=== PATIENT | male | born 1935 | race Two or more races ===

== ENCOUNTER 2021-01-09 02:19 | Inpatient (IN) | payer MEDICARE ==
[2021-01-09] MEDS ORDERED: SODIUM CHLORIDE 0.9% 1,000 ML IV STA (02:59)
--- NOTE | 2021-01-09 03:00 | ED ---
GI Bleed HPI - General Chief complaint: GI Bleed Stated complaint: Poss GI bleed Time Seen by Provider: 01/09/21 02:49 Source: patient, EMS, RN notes reviewed, old records reviewed Mode of arrival: EMS Limitations: altered mental status - History of Present Illness Initial comments: This is an 85-year-old male DF for evaluation patient Dese for evaluation of weakness, patient is a poor historian history obtained by family members at bedside. Patient has had blood in the stool which is been an ongoing issue with recent hospital admission for same. Patient occasionally complains of some abdominal pain but nothing significant. No nausea or vomiting. No blood thinners patient does feel little weak MD complaint: blood on toilet paper, blood streaked stool -: days(s) Radiation: none Severity scale (1-10): 3 Quality: cramping Consistency: intermittent Improves with: none Worsens with: bowel movement Context: history of GI bleed Associated Symptoms: nausea Treatments Prior to Arrival: none - Related Data Home Medications Medication Instructions Recorded Confirmed Multivitamins, Thera [Multivitamin 1 tab PO DAILY@0800 09/12/14 01/09/21 (formulary)] Acetaminophen Tab [Tylenol] 650 mg PO Q6H PRN 01/09/21 01/09/21 Albuterol Sulfate [Albuterol 2 puff INHALATION RT-Q6H PRN 01/09/21 01/09/21 Sulfate Hfa] Ascorbic Acid [Vitamin C] 1,000 mg PO DAILY@169901/09/21 01/09/21 Aspirin 81 mg PO DAILY@169901/09/21 01/09/21 Atorvastatin [Lipitor] 80 mg PO HS@209901/09/21 01/09/21 Cholecalciferol (Vitamin D3) 125 mcg PO DAILY@169901/09/21 01/09/21 [Vitamin D3 (5000 Iu)] Dexamethasone [Decadron] 6 mg PO DAILY@79901/09/21 01/09/21 Donepezil [Aricept] 10 mg PO HS@209901/09/21 01/09/21 Furosemide [Lasix] 40 mg PO DAILY@79901/09/21 01/09/21 Lactose-Reduced Food [Ensure Plus] 1 can PO TID@0800,1200,169901/09/21 01/09/21 Magnesium Hydroxide [Milk of 2,400 ml PO Q48H PRN 01/09/21 01/09/21 Magnesia] Magnesium Oxide [Mag-Ox] 400 mg PO DAILY@1700 01/09/21 01/09/21 Melatonin 10 mg PO HS@209901/09/21 01/09/21 Menthol-Zinc Oxide Oint 1 applic TOPICAL DAILY PRN 01/09/21 01/09/21 [Calmoseptine Oint] Metoprolol Tartrate [Lopressor] 25 mg PO HS@209901/09/21 01/09/21 Na Phos,M-B/Na Phos,Di-Ba [Fleet 133 ml RECTAL DAILY PRN 01/09/21 01/09/21 Adult] Pantoprazole Sodium [Protonix] 40 mg PO BID@0800,209901/09/21 01/09/21 QUEtiapine [SEROquel] 25 mg PO BID@0800,209901/09/21 01/09/21 Tamsulosin [Flomax] 0.4 mg PO DAILY@0800 01/09/21 01/09/21 bisacodyL [Dulcolax] 10 mg RECTAL DAILY PRN 01/09/21 01/09/21 Allergies Allergy/AdvReac Type Severity Reaction Status Date / Time codeine Allergy heartburn Verified 01/09/21 08:04 Review of Systems ROS Statement: Those systems with pertinent positive or pertinent negative responses have been documented in the HPI. ROS Other: All systems not noted in ROS Statement are negative. Past Medical History Past Medical History: Coronary Artery Disease (CAD), GERD/Reflux, Hyperlipidemia, Hypertension, Myocardial Infarction ([place]), Musculoskeletal Disorder, Prostate Disorder, Renal Disease, Supraventricular Tachycardia (SVT) Additional Past Medical History / Comment(s): Degenerative disc disease Last Myocardial Infarction Date:: 09/18/2014 History of Any Multi-Drug Resistant Organisms: None Reported Past Surgical History: Adenoidectomy, Cholecystectomy, Orthopedic Surgery, Tonsillectomy Additional Past Surgical History / Comment(s): Left nephrectomy, cataracts bilaterally, right total knee arthroplasty, colonoscopy - last one 4 years ago and was normal and previous to that he was found to have polyps. Past Anesthesia/Blood Transfusion Reactions: No Reported Reaction Date of Last Stent Placement:: 09/18/2014 Past Psychological History: No Psychological Hx Reported Smoking Status: Never smoker Past Alcohol Use History: Occasional Past Drug Use History: None Reported - Past Family History Father Family Medical History: Myocardial Infarction ([place]) Additional Family Medical History / Comment(s): at age 56 from myocardial infarction. Mother Family Medical History: Coronary Artery Disease (CAD), Dementia (Alzheimer) Additional Family Medical History / Comment(s): Mother at age 74. Brother(s) Family Medical History: Myocardial Infarction ([place]) Additional Family Medical History / Comment(s): One brother alive underwent [place] and CABG Daughter(s) Additional Family Medical History / Comment(s): He has 4 daughters with no major medical problems. He has 2 great stepsons and 2 stepdaughters. General Exam Limitations: altered mental status General appearance: alert, in no apparent distress Head exam: Present: atraumatic, normocephalic, normal inspection Eye exam: Present: normal appearance, PERRL, EOMI. Absent: scleral icterus, conjunctival injection, periorbital swelling ENT exam: Present: normal exam, mucous membranes moist Neck exam: Present: normal inspection. Absent: tenderness, meningismus, lymphadenopathy Respiratory exam: Present: normal lung sounds bilaterally. Absent: respiratory distress, wheezes, rales, rhonchi, stridor Cardiovascular Exam: Present: regular rate, normal rhythm, normal heart sounds. Absent: systolic murmur, diastolic murmur, rubs, gallop, clicks GI/Abdominal exam: Present: soft, normal bowel sounds. Absent: distended, tenderness, guarding, rebound, rigid Extremities exam: Present: normal inspection, full ROM, normal capillary refill. Absent: tenderness, pedal edema, joint swelling, calf tenderness Back exam: Present: normal inspection Neurological exam: Present: alert, oriented X3, CN II-XII intact Psychiatric exam: Present: normal affect, normal mood Skin exam: Present: warm, dry, intact, normal color. Absent: rash Course Vital Signs 01/09/21 01/09/21 01/09/21 02:29 03:41 06:17 Temperature 97.4 F L Pulse Rate 58 L 68 62 Respiratory 18 18 18 Rate Blood Pressure 128/72 110/71 105/62 O2 Sat by Pulse 98 98 95 Oximetry 01/09/21 01/09/21 01/09/21 10:32 12:38 17:59 Temperature Pulse Rate 62 70 71 Respiratory 18 18 18 Rate Blood Pressure 125/63 111/62 103/67 O2 Sat by Pulse 98 97 99 Oximetry 01/09/21 22:53 Temperature Pulse Rate 73 Respiratory 18 Rate Blood Pressure 129/71 O2 Sat by Pulse 95 Oximetry - Reevaluation(s) Reevaluation #1: Medical record is reviewed Patient is feeling improved here in the emergency room Spoke with patient regarding findings questions are answered Patient has no bloody bowel movements here in the ER Will be admitted for further evaluation by GI Medical Decision Making - Medical Decision Making 85 male for weakness. GI bleed. Patient will be admitted for continued evaluation, poor story history obtained and relayed with daughter at bedside, patient is weak mild renal failure although it appears to be improving and elevated troponin - Lab Data Result diagrams: 01/09/21 03:03 01/09/21 03:03 Lab Results 01/09/21 01/09/21 01/09/21 Range/Units 03:03 03:03 03:03 WBC 13.5 H (3.8-10.6) k/uL RBC 3.32 L (4.30-5.90) m/uL Hgb 9.9 L (13.0-17.5) gm/dL Hct 30.2 L (39.0-53.0) % MCV 91.0 (80.0-100.0) fL MCH 29.7 (25.0-35.0) pg MCHC 32.6 (31.0-37.0) g/dL RDW 14.7 (11.5-15.5) % Plt Count 290 (150-450) k/uL MPV 8.8 Neutrophils % 89 % Lymphocytes % 7 % Monocytes % 4 % Eosinophils % 0 % Basophils % 0 % Neutrophils # 12.0 H (1.3-7.7) k/uL Lymphocytes # 0.9 L (1.0-4.8) k/uL Monocytes # 0.5 (0-1.0) k/uL Eosinophils # 0.0 (0-0.7) k/uL Basophils # 0.0 (0-0.2) k/uL PT 10.0 (9.0-12.0) sec INR 0.9 (<1.2) APTT 18.3 L (22.0-30.0) sec Sodium 137 (137-145) mmol/L Potassium 4.7 (3.5-5.1) mmol/L Chloride 100 (98-107) mmol/L Carbon Dioxide 29 (22-30) mmol/L Anion Gap 8 mmol/L BUN 100 H (9-20) mg/dL Creatinine 3.49 H (0.66-1.25) mg/dL Est GFR (CKD-EPI)AfAm 18 (>60 ml/min/1.73 sqM) Est GFR (CKD-EPI)NonAf 15 (>60 ml/min/1.73 sqM) Glucose 130 H (74-99) mg/dL Plasma Lactic Acid Sudheer (0.7-2.0) mmol/L Calcium 8.9 (8.4-10.2) mg/dL Magnesium 2.3 (1.6-2.3) mg/dL Total Bilirubin 0.5 (0.2-1.3) mg/dL AST 65 H (17-59) U/L ALT 50 H (4-49) U/L Alkaline Phosphatase 94 (38-126) U/L Creatine Kinase 78 (55-170) U/L Troponin I (0.000-0.034) ng/mL Total Protein 5.9 L (6.3-8.2) g/dL Albumin 3.2 L (3.5-5.0) g/dL Coronavirus (PCR) (Not Detectd) Blood Type Blood Type Confirm Blood Type Recheck Bld Type Recheck Status Antibody Screen Spec Expiration Date 01/09/21 01/09/21 01/09/21 Range/Units 03:03 03:03 03:03 WBC (3.8-10.6) k/uL RBC (4.30-5.90) m/uL Hgb (13.0-17.5) gm/dL Hct (39.0-53.0) % MCV (80.0-100.0) fL MCH (25.0-35.0) pg MCHC (31.0-37.0) g/dL RDW (11.5-15.5) % Plt Count (150-450) k/uL MPV Neutrophils % % Lymphocytes % % Monocytes % % Eosinophils % % Basophils % % Neutrophils # (1.3-7.7) k/uL Lymphocytes # (1.0-4.8) k/uL Monocytes # (0-1.0) k/uL Eosinophils # (0-0.7) k/uL Basophils # (0-0.2) k/uL PT (9.0-12.0) sec INR (<1.2) APTT (22.0-30.0) sec Sodium (137-145) mmol/L Potassium (3.5-5.1) mmol/L Chloride (98-107) mmol/L Carbon Dioxide (22-30) mmol/L Anion Gap mmol/L BUN (9-20) mg/dL Creatinine (0.66-1.25) mg/dL Est GFR (CKD-EPI)AfAm (>60 ml/min/1.73 sqM) Est GFR (CKD-EPI)NonAf (>60 ml/min/1.73 sqM) Glucose (74-99) mg/dL Plasma Lactic Acid Sudheer 1.6 (0.7-2.0) mmol/L Calcium (8.4-10.2) mg/dL Magnesium (1.6-2.3) mg/dL Total Bilirubin (0.2-1.3) mg/dL AST (17-59) U/L ALT (4-49) U/L Alkaline Phosphatase (38-126) U/L Creatine Kinase (55-170) U/L Troponin I 0.105 H* (0.000-0.034) ng/mL Total Protein (6.3-8.2) g/dL Albumin (3.5-5.0) g/dL Coronavirus (PCR) (Not Detectd) Blood Type O Positive Blood Type Confirm Blood Type Recheck No Previous Record Bld Type Recheck Status CABO Indicated Antibody Screen NEGATIVE Spec Expiration Date 01/12/2021230201/09/21 01/09/21 01/09/21 Range/Units 03:04 04:00 11:26 WBC (3.8-10.6) k/uL RBC (4.30-5.90) m/uL Hgb (13.0-17.5) gm/dL Hct (39.0-53.0) % MCV (80.0-100.0) fL MCH (25.0-35.0) pg MCHC (31.0-37.0) g/dL RDW (11.5-15.5) % Plt Count (150-450) k/uL MPV Neutrophils % % Lymphocytes % % Monocytes % % Eosinophils % % Basophils % % Neutrophils # (1.3-7.7) k/uL Lymphocytes # (1.0-4.8) k/uL Monocytes # (0-1.0) k/uL Eosinophils # (0-0.7) k/uL Basophils # (0-0.2) k/uL PT (9.0-12.0) sec INR (<1.2) APTT (22.0-30.0) sec Sodium (137-145) mmol/L Potassium (3.5-5.1) mmol/L Chloride (98-107) mmol/L Carbon Dioxide (22-30) mmol/L Anion Gap mmol/L BUN (9-20) mg/dL Creatinine (0.66-1.25) mg/dL Est GFR (CKD-EPI)AfAm (>60 ml/min/1.73 sqM) Est GFR (CKD-EPI)NonAf (>60 ml/min/1.73 sqM) Glucose (74-99) mg/dL Plasma Lactic Acid Sudheer (0.7-2.0) mmol/L Calcium (8.4-10.2) mg/dL Magnesium (1.6-2.3) mg/dL Total Bilirubin (0.2-1.3) mg/dL AST (17-59) U/L ALT (4-49) U/L Alkaline Phosphatase (38-126) U/L Creatine Kinase (55-170) U/L Troponin I 0.104 H* (0.000-0.034) ng/mL Total Protein (6.3-8.2) g/dL Albumin (3.5-5.0) g/dL Coronavirus (PCR) Detected A (Not Detectd) Blood Type Blood Type Confirm O Positive Blood Type Recheck Bld Type Recheck Status Antibody Screen Spec Expiration Date Critical Care Time Critical Care Time: Yes Total Critical Care Time: 31 Disposition Clinical Impression: Elevated troponin, Weakness, Lower gastrointestinal hemorrhage, ARF (acute renal failure) Disposition: ADMITTED IP TO THIS [facility] Condition: Serious Is patient prescribed a controlled substance at d/c from ED?: No
[2021-01-09 03:15] LABS: Basophils % (A) 0 %; Eosinophils % (A) 0 %; HCT 30.2 % (39.0-53.0); HGB 9.9 gm/dL (13.0-17.5); Lymphocytes # (A) 0.9 k/uL (1.0-4.8); Lymphocytes % (A) 7 %; MCH 29.7 pg (25.0-35.0); MCHC 32.6 g/dL (31.0-37.0); Mean Platelet Volume 8.8; Monocytes # (A) 0.5 k/uL (0-1.0); Monocytes % (A) 4 %; Neutrophils % (A) 89 %; Platelet Count 290 k/uL (150-450); RBC 3.32 m/uL (4.30-5.90); RDW 14.7 % (11.5-15.5); WBC 13.5 k/uL (3.8-10.6)
[2021-01-09 03:28] LABS: Albumin 3.2 g/dL (3.5-5.0); Calcium 8.9 mg/dL (8.4-10.2); Magnesium 2.3 mg/dL (1.6-2.3); Potassium 4.7 mmol/L (3.5-5.1); Total Bilirubin 0.5 mg/dL (0.2-1.3); Total Protein 5.9 g/dL (6.3-8.2)
[2021-01-09 03:59] LABS: INR 0.9 (<1.2)
[2021-01-09 04:06] LABS: Partial Thromboplastin Time 18.3 sec (22.0-30.0)
[2021-01-09] MEDS ORDERED: NALOXONE 0.4 MG/ML 1 ML VIAL IV PRN (05:10)
[2021-01-09] MEDS ORDERED: ALBUTEROL HFA INHALER INHALATION PRN (10:58)
[2021-01-09] MEDS ORDERED: ACETAMINOPHEN TAB 325 MG TAB PO PRN (10:58)
[2021-01-09] MEDS ORDERED: NON FORMULARY DRUG (Lactose-Reduced Food [Ensure Plus] 237 ML Liquid) PO SCH (12:00)
--- NOTE | 2021-01-09 12:55 | P.HPIM ---
History of Present Illness H&P Date: 01/09/21 Chief Complaint: GI bleed HISTORY OF PRESENT ILLNESS This is an 85-year-old male patient of Dr. 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 Patient was recently seen at [facility] by GI and underwent EGD. Patient was subsequently discharged to [facility] for subacute rehab and he has had dark tarry stools but now having bright red clots. Patient was transferred to [facility] for evaluation and found to be afebrile, heart rate 58, blood pressure 128/72, pulse ox 98% on room air. WBC 15.5, hemoglobin 9.9, platelet count 290. INR 0.9. Electrolytes normal, BUN 100 and creatinine 3.49. Glucose 130. Magnesium 2.3, total bilirubin 1.6, AST 65, ALT 50, alkaline phosphatase 94. Troponin 0.105, 0.104. CK 78. Patient denies having any chest pain at this time. Patient has been seen by GI with plan for EGD and colonoscopy. Cardiology consult added and repeat troponins ordered as well as echocardiogram and EKG. REVIEW OF SYSTEMS Constitutional: No fever, no chills, no night sweats. No weight change. No weakness, fatigue or lethargy. No daytime sleepiness. EENT: No headache. No blurred vision or double vision, no loss of vision. Chronic loss of Hearing, no ringing in the ears, no dizziness. No nasal drainage or congestion. No epistaxis. No sore throat. Lungs: No shortness of breath, cough, no sputum production. No wheezing. Cardiovascular: No chest pain, no lower extremity edema. No palpitations. No p aroxysmal nocturnal dyspnea. No orthopnea. No lightheadedness or dizziness. No syncopal episodes. Abdominal: No abdominal pain. No nausea, vomiting. No diarrhea. No constipation. Reports bloody or tarry stools.. No loss of appetite. Genitourinary: No dysuria, increased frequency, urgency. No urinary retention. Musculoskeletal: No myalgias. No muscle weakness, no gait dysfunction, no freq uent falls. No back pain. No neck pain. Integumentary: No wounds, no lesions. No rash or pruritus. No unusual bruising. No change in hair or nails. Neurologic: No aphasia. No facial droop. No change in mentation. No head injury. No headache. No paralysis. No paresthesia. Psychiatric: No depression. No anxiety. No mood swings. Endocrine: No abnormal blood sugars. SOCIAL HISTORY Patient denies any history of cigarette smoking, marijuana use or street drug use. No history of alcohol use or abuse. Patient does have history of smoking cigars. FAMILY HISTORY Mother at age 74 with history of coronary artery disease and Alzheimer's dementia. Father at age 56 from a myocardial infarction. Patient has one brother with history of IL and CABG. Patient has 4 daughters with no major medical problems. PHYSICAL EXAMINATION Gen: This is an 85-year-old male patient, resting in the ER and appears to be c omfortable. HEENT: Head is atraumatic, normocephalic. Pupils equal, round. Sclerae is anicteric. Patient is very hard of hearing. NECK: Supple. No JVD. No lymphadenopathy. No thyromegaly. LUNGS: Clear to auscultation. No wheezes or rhonchi. No intercostal retractions. HEART: Regular rate and rhythm. 2/6 systolic ejection murmur murmur. ABDOMEN: Soft. Bowel sounds are present. No masses. No tenderness. EXTREMITIES: No pedal edema. No calf tenderness. NEUROLOGICAL: Patient is awake, alert and oriented x3. Cranial nerves 2 through 12 are grossly intact. ASSESSMENT AND PLAN 1. Acute GI bleed. Patient has been seen by GI and plan is for EGD and colonoscopy tomorrow. Continue Protonix 40 mg twice daily, IV fluids 0.9 normal saline at 100 mL per hour.. 2. Acute kidney injury most likely secondary to acute GI bleed. Consult with Dr. Lemus. Hold Lasix, discontinue Decadron. 3. Elevated troponins. Repeat troponins, EKG, echocardiogram and cardiology co nsult ordered. 4. History of coronary artery disease with previous stenting. Hold aspirin. Continue Lipitor and Lopressor 25 mg at bedtime 5. Hypertension. Continue Lopressor. 6. Hyperlipidemia. Continue Lipitor. 7. Chronic kidney disease stage III. 8. Benign prostatic hypertrophy. Continue Flomax 0.4 mg daily. 9. Dementia. Continue Aricept 10 mg at bedtime. 10. Recurrent depression. Continue Seroquel 25 mg twice daily. 11. Recent Covid 19 pneumonia diagnosed on December 27. 12. COVID-19 testing positive. Patient will be admitted to the hospital for a minimum of 2 night stay. DISCHARGE PLAN Return to [facility] Impression and plan of care have been directed as dictated by the signing physician. Dionne Kaur nurse practitioner acting as scribe for signing physician. Past Medical History Past Medical History: Coronary Artery Disease (CAD), GERD/Reflux, Hyperlipidemia, Hypertension, Myocardial Infarction ([place]), Musculoskeletal Disorder, Prostate Disorder, Renal Disease, Supraventricular Tachycardia (SVT) Additional Past Medical History / Comment(s): Degenerative disc disease Last Myocardial Infarction Date:: 09/18/2014 History of Any Multi-Drug Resistant Organisms: None Reported Past Surgical History: Adenoidectomy, Cholecystectomy, Orthopedic Surgery, Tonsillectomy Additional Past Surgical History / Comment(s): Left nephrectomy, cataracts bilaterally, right total knee arthroplasty, colonoscopy - last one 4 years ago and was normal and previous to that he was found to have polyps. Past Anesthesia/Blood Transfusion Reactions: No Reported Reaction Date of Last Stent Placement:: 09/18/2014 Past Psychological History: No Psychological Hx Reported Smoking Status: Never smoker Past Alcohol Use History: Occasional Past Drug Use History: None Reported - Past Family History Father Family Medical History: Myocardial Infarction ([place]) Additional Family Medical History / Comment(s): at age 56 from myocardial infarction. Mother Family Medical History: Coronary Artery Disease (CAD), Dementia (Alzheimer) Additional Family Medical History / Comment(s): Mother at age 74. Brother(s) Family Medical History: Myocardial Infarction ([place]) Additional Family Medical History / Comment(s): One brother alive underwent [place] and CABG Daughter(s) Additional Family Medical History / Comment(s): He has 4 daughters with no major medical problems. He has 2 great stepsons and 2 stepdaughters. Medications and Allergies Home Medications Medication Instructions Recorded Confirmed Type Multivitamins, Thera [Multivitamin 1 tab PO DAILY@0800 0201/09/21 History (formulary)] Acetaminophen Tab [Tylenol] 650 mg PO Q6H PRN 01/09/21 01/09/21 History Albuterol Sulfate [Albuterol 2 puff INHALATION RT-Q6H PRN 01/09/21 01/09/21 History Sulfate Hfa] Ascorbic Acid [Vitamin C] 1,000 mg PO DAILY@169901/09/21 01/09/21 History Aspirin 81 mg PO DAILY@169901/09/21 01/09/21 History Atorvastatin [Lipitor] 80 mg PO HS@209901/09/21 01/09/21 History Cholecalciferol (Vitamin D3) 125 mcg PO DAILY@169901/09/21 01/09/21 History [Vitamin D3 (5000 Iu)] Dexamethasone [Decadron] 6 mg PO DAILY@79901/09/21 01/09/21 History Donepezil [Aricept] 10 mg PO HS@209901/09/21 01/09/21 History Furosemide [Lasix] 40 mg PO DAILY@79901/09/21 01/09/21 History Lactose-Reduced Food [Ensure Plus] 1 can PO TID@0800,1200,169901/09/21 01/09/21 History Magnesium Hydroxide [Milk of 2,400 ml PO Q48H PRN 01/09/21 01/09/21 History Magnesia] Magnesium Oxide [Mag-Ox] 400 mg PO DAILY@169901/09/21 01/09/21 History Melatonin 10 mg PO HS@209901/09/21 01/09/21 History Menthol-Zinc Oxide Oint 1 applic TOPICAL DAILY PRN 01/09/21 01/09/21 History [Calmoseptine Oint] Metoprolol Tartrate [Lopressor] 25 mg PO HS@209901/09/21 01/09/21 History Na Phos,M-B/Na Phos,Di-Ba [Fleet 133 ml RECTAL DAILY PRN 01/09/21 01/09/21 H istory Adult] Pantoprazole Sodium [Protonix] 40 mg PO BID@0800,209901/09/21 01/09/21 History QUEtiapine [SEROquel] 25 mg PO BID@0800,2100 01/09/21 01/09/21 History Tamsulosin [Flomax] 0.4 mg PO DAILY@0800 01/09/21 01/09/21 History bisacodyL [Dulcolax] 10 mg RECTAL DAILY PRN 01/09/21 01/09/21 History Allergies Allergy/AdvReac Type Severity Reaction Status Date / Time codeine Allergy heartburn Verified 01/09/21 08:04 Physical Exam Vitals: Vital Signs Temp Pulse Resp BP Pulse Ox 01/09/21 10:32 62 18 125/63 98 01/09/21 06:17 62 18 105/62 95 01/09/21 03:41 68 18 110/71 98 01/09/21 02:29 97.4 F L 58 L 18 128/72 98 Intake and Output 01/08/21 01/09/21 01/09/21 22:59 06:59 14:59 Other: Weight 90.718 kg Results CBC & Chem 7: 01/09/21 03:03 01/09/21 03:03 Labs: Abnormal Lab Results - Last 24 Hours (Table) 01/09/21 01/09/21 01/09/21 Range/Units 03:03 03:03 03:03 WBC 13.5 H (3.8-10.6) k/uL RBC 3.32 L (4.30-5.90) m/uL Hgb 9.9 L (13.0-17.5) gm/dL Hct 30.2 L (39.0-53.0) % Neutrophils # 12.0 H (1.3-7.7) k/uL Lymphocytes # 0.9 L (1.0-4.8) k/uL APTT 18.3 L (22.0-30.0) sec BUN 100 H (9-20) mg/dL Creatinine 3.49 H (0.66-1.25) mg/dL Glucose 130 H (74-99) mg/dL AST 65 H (17-59) U/L ALT 50 H (4-49) U/L Troponin I (0.000-0.034) ng/mL Total Protein 5.9 L (6.3-8.2) g/dL Albumin 3.2 L (3.5-5.0) g/dL Coronavirus (PCR) (Not Detectd) 01/09/21 01/09/21 Range/Units 03:03 04:00 WBC (3.8-10.6) k/uL RBC (4.30-5.90) m/uL Hgb (13.0-17.5) gm/dL Hct (39.0-53.0) % Neutrophils # (1.3-7.7) k/uL Lymphocytes # (1.0-4.8) k/uL APTT (22.0-30.0) sec BUN (9-20) mg/dL Creatinine (0.66-1.25) mg/dL Glucose (74-99) mg/dL AST (17-59) U/L ALT (4-49) U/L Troponin I 0.105 H* (0.000-0.034) ng/mL Total Protein (6.3-8.2) g/dL Albumin (3.5-5.0) g/dL Coronavirus (PCR) Detected A (Not Detectd)
--- NOTE | 2021-01-09 13:31 | P.CRDCN ---
History of Present Illness Consult date: 01/09/21 History of present illness: HISTORY OF PRESENT ILLNESS: This is a 85 year old male with a past medical history significant for coronary artery disease, hypertension, hyperlipidemia, SVT, GERD, and dementia. Patient follows with Dr. Vela. We have been asked to see the patient in consultation for elevated troponins. Patient examined at the bedside in the emergency room. Patients family member is at the bedside and providing majority of history. She reports patient was taken to [facility] on 12/26/2020 due to weakness. He was diagnosed with Covid 19 and also found to have acute renal failure. Patient developed pneumonia. Patient also developed GI bleeding and underwent EGD per family member. He was discharged to [facility] for rehab. Patient presented back to the hospital today due to GI bleeding. He denies chest pain or pressure. Denies shortness of breath. Denies dizziness or lightheadedness. Family member states patient has been stable from a cardiac standpoint since his stenting in 2016 and has not required any additional cardiac workup or procedures. EKG reveals sinus mechanism with left axis deviation and right bundle branch block. Laboratory data: WBC 13.5. Hemoglobin 9.9. Platelet count 290. Sodium 137. Potassium 4.7. BUN 100. Creatinine 3.49. Potassium 1.6. Troponin 0.105. 0.104. Current home cardiac medications include metoprolol tartrate 25 mg at night, Lasix 40 mg daily, Lipitor 80 mg daily, and aspirin 81 mg daily Most recent echocardiogram obtained in 2016 reveals ejection fraction 30-35%, [id number] mitral regurgitation, mild tricuspid regurgitation, and mild aortic stenosis Cardiac catheterization history: 2016 with stenting of the late thrombosis of the proximal left anterior descending artery with reduction stenosis from 100% to 0%. REVIEW OF SYSTEMS: At the time of my exam: CONSTITUTIONAL: Denies fever or chills. HEENT: Denies blurred vision, vision changes, or eye pain. Denies hemoptysis CARDIOVASCULAR: Denies chest pain. Denies orthopnea. Denies PND. Denies palpitations RESPIRATORY: Denies shortness of breath. GASTROINTESTINAL: Denies abdominal pain. Denies nausea or vomiting. HEMATOLOGIC: Denies bleeding disorders. GENITOURINARY: Denies any blood in urine. SKIN: Denies pruitis. Denies rash. PHYSICAL EXAM: VITAL SIGNS: Reviewed. GENERAL: Well-developed in no acute distress. HEENT: Head is normocephalic. Pupils are equal, round. Sclerae anicteric. Mucous membranes of the mouth are moist. Neck supple. No JVD or thyromegaly LUNGS: Respirations even and unlabored. Lungs diminished bilaterally. HEART: Regular rate and rhythm. S1 and S2 heard. Systolic murmur noted. ABDOMEN: Soft. Nondistended. Nontender. EXTREMITIES: Normal range of motion. No clubbing or cyanosis. Peripheral pulses intact. No lower extremity edema NEUROLOGIC: Awake and alert. ASSESSMENT: Acute Covid 19, diagnosed 12/26/2020 at [facility] Coronary artery disease with previous PCI, most recently in 2016 Acute renal failure Acute GI bleeding Abnormal troponins, may be secondary to DALY and acute blood loss anemia, not suggestive of ACS Ischemic cardiomyopathy Hypertension Hyperlipidemia Dementia PLAN: An acute coronary event has been ruled out GI consulted for evaluation. Aspirin held. Resume when okay with GI service Continue metoprolol and lipitor Obtain 2D echo to assess cardiac structure and function Further recommendations pending patient course Nurse practitioner note has been reviewed by physician. Signing provider agrees with the documented findings, assessment, and plan of care. Past Medical History Past Medical History: Coronary Artery Disease (CAD), GERD/Reflux, Hyp erlipidemia, Hypertension, Myocardial Infarction (VA), Musculoskeletal Disorder, Prostate Disorder, Renal Disease, Supraventricular Tachycardia (SVT) Additional Past Medical History / Comment(s): Degenerative disc disease Last Myocardial Infarction Date:: 09/18/2014 History of Any Multi-Drug Resistant Organisms: None Reported Past Surgical History: Adenoidectomy, Cholecystectomy, Orthopedic Surgery, Tonsillectomy Additional Past Surgical History / Comment(s): Left nephrectomy, cataracts bilaterally, right total knee arthroplasty, colonoscopy - last one 4 years ago and was normal and previous to that he was found to have polyps. Past Anesthesia/Blood Transfusion Reactions: No Reported Reaction Date of Last Stent Placement:: 09/18/2014 Past Psychological History: No Psychological Hx Reported Smoking Status: Never smoker Past Alcohol Use History: Occasional Past Drug Use History: None Reported - Past Family History Father Family Medical History: Myocardial Infarction (VA) Additional Family Medical History / Comment(s): at age 56 from myocardial infarction. Mother Family Medical History: Coronary Artery Disease (CAD), Dementia (Alzheimer) Additional Family Medical History / Comment(s): Mother at age 74. Brother(s) Family Medical History: Myocardial Infarction (VA) Additional Family Medical History / Comment(s): One brother alive underwent VA and CABG Daughter(s) Additional Family Medical History / Comment(s): He has 4 daughters with no major medical problems. He has 2 great stepsons and 2 stepdaughters. Medications and Allergies Home Medications Medication Instructions Recorded Confirmed Type Multivitamins, Thera [Multivitamin 1 tab PO DAILY@0800 09/12/14 01/09/21 History (formulary)] Acetaminophen Tab [Tylenol] 650 mg PO Q6H PRN 01/09/21 01/09/21 History Albuterol Sulfate [Albuterol 2 puff INHALATION RT-Q6H PRN 01/09/21 01/09/21 History Sulfate Hfa] Ascorbic Acid [Vitamin C] 1,000 mg PO DAILY@169901/09/21 01/09/21 History Aspirin 81 mg PO DAILY@169901/09/21 01/09/21 History Atorvastatin [Lipitor] 80 mg PO HS@209901/09/21 01/09/21 History Cholecalciferol (Vitamin D3) 125 mcg PO DAILY@169901/09/21 01/09/21 History [Vitamin D3 (5000 Iu)] Dexamethasone [Decadron] 6 mg PO DAILY@79901/09/21 01/09/21 History Donepezil [Aricept] 10 mg PO HS@209901/09/21 01/09/21 History Furosemide [Lasix] 40 mg PO DAILY@79901/09/21 01/09/21 History Lactose-Reduced Food [Ensure Plus] 1 can PO TID@0800,1200,169901/09/21 01/09/21 History Magnesium Hydroxide [Milk of 2,400 ml PO Q48H PRN 01/09/21 01/09/21 History Magnesia] Magnesium Oxide [Mag-Ox] 400 mg PO DAILY@169901/09/21 01/09/21 History Melatonin 10 mg PO HS@209901/09/21 01/09/21 History Menthol-Zinc Oxide Oint 1 applic TOPICAL DAILY PRN 01/09/21 01/09/21 History [Calmoseptine Oint] Metoprolol Tartrate [Lopressor] 25 mg PO HS@209901/09/21 01/09/21 History Na Phos,M-B/Na Phos,Di-Ba [Fleet 133 ml RECTAL DAILY PRN 01/09/21 01/09/21 History Adult] Pantoprazole Sodium [Protonix] 40 mg PO BID@0800,209901/09/21 01/09/21 History QUEtiapine [SEROquel] 25 mg PO BID@0800,209901/09/21 01/09/21 History Tamsulosin [Flomax] 0.4 mg PO DAILY@0800 01/09/21 01/09/21 History bisacodyL [Dulcolax] 10 mg RECTAL DAILY PRN 01/09/21 01/09/21 History Allergies Allergy/AdvReac Type Severity Reaction Status Date / Time codeine Allergy heartburn Verified 01/09/21 08:04 Physical Exam Vitals: Vital Signs Temp Pulse Resp BP Pulse Ox 01/09/21 10:32 62 18 125/63 98 01/09/21 06:17 62 18 105/62 95 01/09/21 03:41 68 18 110/71 98 01/09/21 02:29 97.4 F L 58 L 18 128/72 98 Intake and Output 01/08/21 01/09/21 01/09/21 22:59 06:59 14:59 Other: Weight 90.718 kg Results 01/09/21 03:03 01/09/21 03:03 Cardiac Enzymes 01/09/21 01/09/21 01/09/21 Range/Units 03:03 03:03 11:26 AST 65 H (17-59) U/L Troponin I 0.105 H* 0.104 H* (0.000-0.034) ng/mL Coagulation 01/09/21 Range/Units 03:03 PT 10.0 (9.0-12.0) sec APTT 18.3 L (22.0-30.0) sec CBC 01/09/21 Range/Units 03:03 WBC 13.5 H (3.8-10.6) k/uL RBC 3.32 L (4.30-5.90) m/uL Hgb 9.9 L (13.0-17.5) gm/dL Hct 30.2 L (39.0-53.0) % Plt Count 290 (150-450) k/uL Comprehensive Metabolic Panel 01/09/21 Range/Units 03:03 Sodium 137 (137-145) mmol/L Potassium 4.7 (3.5-5.1) mmol/L Chloride 100 (98-107) mmol/L Carbon Dioxide 29 (22-30) mmol/L BUN 100 H (9-20) mg/dL Creatinine 3.49 H (0.66-1.25) mg/dL Glucose 130 H (74-99) mg/dL Calcium 8.9 (8.4-10.2) mg/dL AST 65 H (17-59) U/L ALT 50 H (4-49) U/L Alkaline Phosphatase 94 (38-126) U/L Total Protein 5.9 L (6.3-8.2) g/dL Albumin 3.2 L (3.5-5.0) g/dL Current Medications Generic Name Dose Route Start Last Admin Trade Name Freq PRN Reason Stop Dose Admin Acetaminophen 650 mg 01/09/21 10:58 Acetaminophen Tab 325 Mg Tab PO Q6H PRN Pain Albuterol Sulfate 2 puff 01/09/21 10:58 Albuterol Hfa Inhaler INHALATION RT-Q6H PRN Shortness Of Breath Atorvastatin Calcium 80 mg 01/09/21 21:00 Atorvastatin 80 Mg Tab PO HS@2100 ROGER Donepezil HCl 10 mg 01/09/21 21:00 Donepezil 10 Mg Tab PO HS@2100 ROGER Sodium Chloride 1,000 mls @ 100 mls/hr 01/09/21 02:59 01/09/21 03:23 Saline 0.9% IV 01/09/21 12:58 100 mls/hr .Q10H STA Administration Sodium Chloride 1,000 mls @ 100 mls/hr 01/09/21 12:45 Saline 0.9% IV .Q10H ROGER Melatonin 10 mg 01/09/21 21:00 Melatonin 5 Mg Tablet PO HS@2100 ROGER Metoprolol Tartrate 25 mg 01/09/21 21:00 Metoprolol Tartrate 25 Mg Tab PO HS@2100 ROGER Naloxone HCl 0.2 mg 01/09/21 05:10 Naloxone 0.4 Mg/Ml 1 Ml Vial IV Q2M PRN Opioid Reversal Pantoprazole Sodium 40 mg 01/09/21 21:00 Pantoprazole 40 Mg Tablet PO BID@0800,2100 [facility] Polyethylene Glycol/Electrolytes 4,000 ml 01/09/21 14:00 Peg 3350-Na Sulf,Bicarb,Cl/Kcl 4,000 Ml Bottle PO 01/09/21 14:01 ONCE ONE Quetiapine Fumarate 25 mg 01/09/21 21:00 Quetiapine 25 Mg Tab PO BID@0800,2100 [facility] Tamsulosin HCl 0.4 mg 01/10/21 08:00 Tamsulosin 0.4 Mg Cap.Er.24h PO DAILY@0800 [facility] Intake and Output 01/08/21 01/09/21 01/09/21 22:59 06:59 14:59 Other: Weight 90.718 kg 01/09/21 03:03 01/09/21 03:03
--- NOTE | 2021-01-09 13:45 | CONS ---
CONSULTATION REASON FOR CONSULT: Renal failure. HISTORY OF PRESENT ILLNESS: Patient is an 85-year-old male with a recent Covid infection and acute kidney injury for which patient was hospitalized at [facility]. At that time, he had a creatinine as high as 67 mg/dL which eventually improved with IV hydration. I will have to check the records to see what his creatinine was when patient was discharged from the hospital. He is admitted this time with complaints of rectal bleeding. He was discharged to [facility] from [facility]. The patient denies any significant urinary symptoms. He has been voiding. His hemoglobin was 9.9 g/dL today. Serum creatinine was 3.49 with BUN of 100 from labs this morning. Coronavirus PCR is positive. Blood pressure has been slightly on the lower side with systolic 105-111 mmHg. Patient's family states that he has not been eating or drinking much. PAST MEDICAL HISTORY: Acute kidney injury, mostly prerenal for which hospitalized at [facility]. Serum creatinine had improved significantly. 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 SOCIAL HISTORY: The patient is a former smoker. No history of drug abuse or alcohol abuse. MEDICATIONS: Prior to admission included Dulcolax, Flomax, Seroquel, Protonix, Lopressor, magnesium, Lasix, Decadron, Lipitor, vitamin D, aspirin, Tylenol, albuterol. ASSESSMENT: 1. Acute kidney injury, prerenal. Continue with IV hydration. The patient recently had acute kidney injury for which she was hospitalized at [facility] and his creatinine has improved from about 6 or 7 mg/dL to close to 3 I believe, 2 prior to discharge. We will check the records from [facility]. The patient also has a solitary kidney as he has had left nephrectomy previously. 2. Gastrointestinal bleed, hemoglobin 9.9, being evaluated by Gastroenterology. 3. Coronary artery disease. 4. COVID infection with unremarkable chest x-ray on recent hospitalization at [facility]. PLAN: Continue with IV hydration. Continue with Flomax. Monitor urine output. Repeat labs in a.m. and I will review the records at [facility]. MMODL / IJN: [id number] /
[2021-01-09] MEDS ORDERED: PEG 3350-NA SULF,BICARB,CL/KCL 4,000 ML BOTTLE PO ONE (14:00)
[2021-01-09] MEDS: SODIUM CHLORIDE 0.9% 1,000 ML IV SCH ×2 (14:14→22:56)
[2021-01-09] MEDS: ATORVASTATIN 80 MG TAB PO SCH (22:54)
[2021-01-09] MEDS: MELATONIN 5 MG TABLET PO SCH (22:54)
[2021-01-09] MEDS: DONEPEZIL 10 MG TAB PO SCH (22:55)
[2021-01-09] MEDS: QUEtiapine 25 MG TAB PO SCH (22:55)
[2021-01-09] MEDS: PANTOPRAZOLE 40 MG TABLET PO SCH (22:59)
[2021-01-10] MEDS: METOPROLOL TARTRATE 25 MG TAB PO SCH ×2 (00:20→20:59)
--- NOTE | 2021-01-10 01:34 | CONS ---
CONSULTATION DATE OF SERVICE: 01/09/2021 REQUESTING PHYSICIAN: Dr. Castano. REASON FOR CONSULTATION: Rectal bleeding. HISTORY OF PRESENT ILLNESS: The patient is an 85-year-old pleasant white male with history of dementia who was brought to the emergency room from [facility] where he was discharged from the hospital about 4 days ago. The patient was admitted to [facility] for one week and while in the hospital he had some black tarry stools. He was seen by Dr. Lam on consultation and subsequently had an upper endoscopy done last Julien that revealed some gastritis. The patient subsequently was discharged to the care home and apparently while in the care home had multiple episodes of bright red blood per rectum with clots and hence he was brought to the [facility] for further evaluation. His initial hemoglobin was 9.9 g/dL. The patient denies any anticoagulation use. He has been taking aspirin on a daily basis. No prior history of colonoscopy. The patient denies any abdominal pain. No nausea, no vomiting. Never had these symptoms in the past. PAST MEDICAL HISTORY: Significant for hypertension, coronary artery disease, mild dementia, hypercholesteremia. MEDICATIONS: Medications at home include Lopressor, aspirin, Zestril, Lipitor, Colace, Nitrostat, Brilinta. ALLERGIES: CODEINE. SOCIAL HISTORY: No smoking, no alcohol use. PAST SURGICAL HISTORY: Adenoidectomy, cholecystectomy, tonsillectomy, bilateral cataract surgery, left nephrectomy, total knee arthroscopy. REVIEW OF SYSTEMS: CARDIOPULMONARY: He denies any chest pain or shortness of breath. GENITOURINARY: No dysuria or hematuria. MUSCULOSKELETAL: Unremarkable. NEUROLOGY: Mild dementia. ENT/VISION: Unremarkable. GI: Recent GI bleed as mentioned above for which he underwent an upper endoscopy by Dr. Lam last Friday at [facility] that showed gastritis. CONSTITUTIONAL: No recent weight loss. No fever, chills, night sweats. HEMATOLOGY: Mild anemia. FAMILY HISTORY: Unremarkable. PHYSICAL EXAMINATION: He appears comfortable. No apparent distress. VITAL SIGNS: Stable. Blood pressure 138/72, pulse rate 58, temperature 97.4. HEENT examination unremarkable. Conjunctivae pink, sclerae anicteric. Oral cavity no lesions. NECK: No JVD or lymph node enlargement. CHEST was clear to auscultation. HEART: Regular rate and rhythm. ABDOMEN: Soft. Bowel sounds are positive. It was nontender, nondistended. EXTREMITIES: No pedal edema. SKIN: No rashes. NEURO: He is alert and oriented x3. No focal deficits. LABS: At the time of admission to the hospital WBC was 13.5, hemoglobin 9.9, platelets 219, BUN 100, creatinine 3.49 PT/INR of 0.9. IMPRESSION: 1. Acute lower gastrointestinal bleed. Patient presented with multiple episodes of bright red blood per rectum for the last 2 days duration. He had about 3 episodes in the ER. His last colonoscopy was several years ago and according to the family was unremarkable, but he has prior history of colon polyps. Likely dealing with a diverticular bleed but other colorectal pathology cannot be excluded. Presently he is hemodynamically stable. Last hemoglobin was 9.9 g/dL. He recently was admitted to [facility] and had an upper endoscopy by Dr. Lam 4 days ago that showed some gastritis. 2. History of hypertension. 3. History of hyperlipidemia. 4. Mild dementia. RECOMMENDATION: 1. Clear liquid diet. 2. We will proceed with colonoscopy tomorrow. Discussed with the patient as well as his daughter who was at the bedside risks, benefits and complications of the procedure. 3. Monitor CBC daily and transfuse if the hemoglobin is less than 7. 4. We will follow with you closely. MMWILLIEL / IJN: [id number] /
[2021-01-10 05:17] LABS: Basophils % (A) 0 %; Eosinophils # (A) 0.1 k/uL (0-0.7); Eosinophils % (A) 1 %; Lymphocytes % (A) 11 %; MCH 29.4 pg (25.0-35.0); MCHC 32.5 g/dL (31.0-37.0); MCV 90.4 fL (80.0-100.0); Mean Platelet Volume 8.4; Monocytes # (A) 0.4 k/uL (0-1.0); Monocytes % (A) 5 %; Neutrophils # (A) 7.2 k/uL (1.3-7.7); Neutrophils % (A) 82 %; Platelet Count 213 k/uL (150-450); RBC 2.66 m/uL (4.30-5.90); RDW 14.9 % (11.5-15.5); WBC 8.8 k/uL (3.8-10.6)
[2021-01-10 05:20] LABS: HGB 7.8 gm/dL (13.0-17.5)
[2021-01-10 05:31] LABS: Albumin 2.3 g/dL (3.5-5.0); Calcium 7.8 mg/dL (8.4-10.2); Total Protein 4.7 g/dL (6.3-8.2)
[2021-01-10] MEDS: PANTOPRAZOLE 40 MG TABLET PO SCH ×2 (08:54→20:57)
[2021-01-10] MEDS: QUEtiapine 25 MG TAB PO SCH ×2 (08:54→20:57)
[2021-01-10] MEDS: TAMSULOSIN 0.4 MG CAP.ER.24H PO SCH (08:54)
--- NOTE | 2021-01-10 11:21 | PN ---
PROGRESS NOTE Mr. Patiño is an 85-year-old male who presented with evidence of GI bleeding, was evaluated by Dr. Donohue and scheduled to undergo colonoscopy. The patient was seen because of mild elevation of troponin. He was seen with his daughter. The patient has a history of coronary artery disease status post percutaneous revascularization, but has no recent recurrent angina pectoris. He has history of dementia. He had a COVID- 19 diagnosis on December 26. He is in sinus mechanism. He had no further bleeding since yesterday. He continues on Lipitor 80 mg daily, metoprolol tartrate 25 mg daily, Protonix. PHYSICAL EXAMINATION: Blood pressure 100/58 with heart rate in the 70s. LUNGS: Clear. HEART: Regular rate and rhythm, S1, S2. No S3. No rub. ABDOMEN: Soft and nontender. EXTREMITIES: No significant edema. LAB DATA: Lab data revealed BUN and creatinine 76 and 2.8, which has improved compared to yesterday. His hemoglobin is down to 7.8. IMPRESSION: 1. Gastrointestinal bleeding. Workup in progress. 2. Troponin elevation with no evidence to suggest acute coronary syndrome, could be worsened by the renal failure and the anemia. 3. History of coronary artery disease status post stenting in 2016, appears to be stable. 4. Renal failure. 5. History of ischemic cardiomyopathy. 6. Hypertension. 7. Hyperlipidemia. 8. Dementia. RECOMMENDATION: From the cardiac standpoint, continue current therapy. Will await the results of his GI workup. He will review the results of his echocardiogram. Once he is stable from the GI service, then we will resume 81 mg of aspirin. MMODL / IJN: [id number] /
[2021-01-10 13:08] LABS: HCT 25.4 % (39.0-53.0); HGB 8.4 gm/dL (13.0-17.5); Hypochromasia Slight; MCH 31.2 pg (25.0-35.0); MCV 94.6 fL (80.0-100.0); Mean Platelet Volume 8.5; Platelet Count 229 k/uL (150-450); RBC 2.69 m/uL (4.30-5.90); RDW 14.3 % (11.5-15.5); WBC 10.3 k/uL (3.8-10.6)
--- NOTE | 2021-01-10 14:13 | P.PN ---
Subjective Progress Note Date: 01/10/21 HISTORY OF PRESENT ILLNESS This is an 85-year-old male patient of Dr. 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 Patient was recently seen at [facility] by GI and underwent EGD. Patient was subsequently discharged to [facility] for subacute rehab and he has had dark tarry stools but now having bright red clots. Patient was transferred to [facility] for evaluation and found to be afebrile, heart rate 58, blood pressure 128/72, pulse ox 98% on room air. WBC 15.5, hemoglobin 9.9, platelet count 290. INR 0.9. Electrolytes normal, BUN 100 and creatinine 3.49. Glucose 130. Magnesium 2.3, total bilirubin 1.6, AST 65, ALT 50, alkaline phosphatase 94. Troponin 0.105, 0.104. CK 78. Patient denies having any chest pain at this time. Patient has been seen by GI with plan for EGD and colonoscopy. Cardiology consult added and repeat troponins ordered as well as echocardiogram and EKG. 01/10: Patient remains in the emergency center waiting for a bed on the cardiac stepdown unit. Patient is actively having bleeding while receiving prep for EGD colonoscopy was which is scheduled for today. Patient denies any pain. Patient is tired today. CBC ordered for every 8 hours. Hemoglobin today is at 7.8 and 1 unit of packed RBCs will be ordered. He has been afebrile, heart rate 80, blood pressure 98/60, pulse ox 97% on room air. WBC 10.3, hemoglobin repeat is 8.4, platelet count 229. Sodium 136, potassium 4.0, chloride 105, CO2 25, BUN 76 creatinine 2.8. Patient has been seen by cardiology and acute coronary syndrome ruled out. REVIEW OF SYSTEMS Constitutional: No fever, no chills, no night sweats. No weight change. No weakness, fatigue or lethargy. No daytime sleepiness. EENT: No headache. No blurred vision or double vision, no loss of vision. Chronic loss of Hearing, no ringing in the ears, no dizziness. No nasal drainage or congestion. No epistaxis. No sore throat. Lungs: No shortness of breath, cough, no sputum production. No wheezing. Cardiovascular: No chest pain, no lower extremity edema. No palpitations. No paroxysmal nocturnal dyspnea. No orthopnea. No lightheadedness or dizziness. No syncopal episodes. Abdominal: No abdominal pain. No nausea, vomiting. No diarrhea. No constipation. Reports bloody or tarry stools.. No loss of appetite. Genitourinary: No dysuria, increased frequency, urgency. No urinary retention. Musculoskeletal: No myalgias. No muscle weakness, no gait dysfunction, no frequent falls. No back pain. No neck pain. Integumentary: No wounds, no lesions. No rash or pruritus. No unusual bruising. No change in hair or nails. Neurologic: No aphasia. No facial droop. No change in mentation. No head injury. No headache. No paralysis. No paresthesia. Psychiatric: No depression. No anxiety. No mood swings. Endocrine: No abnormal blood sugars. PHYSICAL EXAMINATION Gen: This is an 85-year-old male patient, resting in the ER and appears to be comfortable. Daughter is at bedside HEENT: Head is atraumatic, normocephalic. Pupils equal, round. Sclerae is anicteric. Patient is very hard of hearing. NECK: Supple. No JVD. No lymphadenopathy. No thyromegaly. LUNGS: Clear to auscultation. No wheezes or rhonchi. No intercostal retractions. HEART: Regular rate and rhythm. 2/6 systolic ejection murmur murmur. ABDOMEN: Soft. Bowel sounds are present. No masses. No tenderness. EXTREMITIES: No pedal edema. No calf tenderness. NEUROLOGICAL: Patient is awake, alert and oriented x3. Cranial nerves 2 through 12 are grossly intact. ASSESSMENT AND PLAN 1. Acute GI bleed. Patient has been seen by GI and plan is for EGD and colonoscopy today. Continue Protonix 40 mg twice daily, IV fluids 0.9 normal saline at 100 mL per hour.. 2. Acute kidney injury most likely secondary to acute GI bleed. Consult with Dr. Lemus. Hold Lasix, discontinue Decadron. 3. Elevated troponins secondary to renal failure. Repeat troponins, EKG, echocardiogram and cardiology consult ordered. 4. History of coronary artery disease with previous stenting. Hold aspirin. Continue Lipitor and Lopressor 25 mg at bedtime 5. Hypertension. Continue Lopressor. 6. Hyperlipidemia. Continue Lipitor. 7. Chronic kidney disease stage III. 8. Benign prostatic hypertrophy. Continue Flomax 0.4 mg daily. 9. Dementia. Continue Aricept 10 mg at bedtime. 10. Recurrent depression. Continue Seroquel 25 mg twice daily. 11. Recent Covid 19 pneumonia diagnosed on December 27, . 12. COVID-19 testing positive. DISCHARGE PLAN Return to [facility] Impression and plan of care have been directed as dictated by the signing physician. Dionne Kaur nurse practitioner acting as scribe for signing physician. Objective - Vital Signs Vital signs: Vital Signs Temp 98.0 F 01/10/21 06:18 Pulse 76 01/10/21 09:01 Resp 16 01/10/21 09:01 BP 100/58 01/10/21 09:01 Pulse Ox 97 01/10/21 06:18 - Labs CBC & Chem 7: 01/10/21 12:31 01/10/21 04:46 Labs: Abnormal Lab Results - Last 24 Hours (Table) 01/09/21 01/09/21 01/10/21 Range/Units 11:26 15:02 04:46 RBC 2.66 L (4.30-5.90) m/uL Hgb 7.8 L D (13.0-17.5) gm/dL Hct 24.0 L (39.0-53.0) % Sodium (137-145) mmol/L BUN (9-20) mg/dL Creatinine (0.66-1.25) mg/dL Calcium (8.4-10.2) mg/dL AST (17-59) U/L Troponin I 0.104 H* 0.104 H* (0.000-0.034) ng/mL Total Protein (6.3-8.2) g/dL Albumin (3.5-5.0) g/dL 01/10/21 Range/Units 04:46 RBC (4.30-5.90) m/uL Hgb (13.0-17.5) gm/dL Hct (39.0-53.0) % Sodium 136 L (137-145) mmol/L BUN 76 H (9-20) mg/dL Creatinine 2.80 H (0.66-1.25) mg/dL Calcium 7.8 L (8.4-10.2) mg/dL AST 61 H (17-59) U/L Troponin I (0.000-0.034) ng/mL Total Protein 4.7 L (6.3-8.2) g/dL Albumin 2.3 L (3.5-5.0) g/dL
[2021-01-10] MEDS ORDERED: PEG 3350-NA SULF,BICARB,CL/KCL 4,000 ML BOTTLE PO ONE (15:00)
--- NOTE | 2021-01-10 15:47 | PN ---
PROGRESS NOTE Patient is seen for followup for acute kidney injury which appears to be mostly prerenal, currently improving with IV hydration. The patient has tested positive for coronavirus PCR. He was admitted with gastrointestinal bleed and is scheduled for colonoscopy today. PHYSICAL EXAMINATION: On examination today, blood pressure was 100/58, heart rate 76 per minute, he is afebrile. The patient has no evidence of edema lower extremities. He appears euvolemic. ROSE GROWER exam grossly intact. LAB: Show sodium 136, potassium 4.0, BUN 76, creatinine 2.8, and hemoglobin 7.8 g/dL. ASSESSMENT: 1. Acute kidney injury, mostly prerenal, currently improving with IV hydration. 2. Chronic kidney disease. Need to establish baseline creatinine. 3. COVID infection with unremarkable chest x-ray and recent hospitalization at [facility], currently maintained on room air. 4. Gastrointestinal bleed with drop in hemoglobin status post packed RBCs transfusion, being followed by GI, scheduled for colonoscopy today. 5. Gastroesophageal reflux disease. 6. History of benign prostatic hypertrophy. PLAN: Continue IV fluids. Repeat labs in a.m. and check urinalysis. MMODL / IJN: [id number] /
--- NOTE | 2021-01-10 16:15 | P.PN ---
Subjective Progress Note Date: 01/10/21 Principal diagnosis: Rectal bleeding Patient was seen and examined still in the emergency department waiting for a bed. The patient was able to tolerate at least three quarters of his prep, however balls still are not running clear. He is having dark loose bowel movements. He is denying any abdominal pain, nausea, or vomiting. Patient had a drop in his hemoglobin from 9.9-7.8 and medicine team has ordered 1 unit of PRBC transfusion. Patient was scheduled for a colonoscopy today, however due to poor prep will continue his prep and be scheduled tomorrow with possibility of added small bowel video capsule endoscopy. Objective - Vital Signs Vital signs: Vital Signs Temp 97.8 F 01/10/21 15:48 Pulse 80 01/10/21 15:48 Resp 16 01/10/21 15:48 BP 107/61 01/10/21 15:48 Pulse Ox 95 01/10/21 13:57 Intake & Output 01/09/21 01/10/21 01/10/21 18:59 06:59 18:59 Intake Total 0 Output Total 1000 Balance -1000 Weight 90.718 kg Intake: Blood Product 0 Rc Pheresis As-3 Unit 0 [id number] Output: Stool 1000 - Exam General appearance: The patient is alert, oriented, appears in no acute distress. HET: Head is normocephalic and atraumatic. Conjunctiva pink. Sclera anicteric. Neck: Supple without lymphadenopathy. Abdomen: Soft, nontender, nondistended with bowel sounds. No guarding or rigidity. Extremities: Normal skin color and turgor. No pedal edema Skin: No rashes, no jaundice Neurological: No focal deficits. Alert and oriented 3. - Labs CBC & Chem 7: 01/10/21 12:31 01/10/21 04:46 Labs: Abnormal Lab Results - Last 24 Hours (Table) 01/09/21 01/09/21 01/10/21 Range/Units 03:03 15:02 04:46 RBC 2.66 L (4.30-5.90) m/uL Hgb 7.8 L D (13.0-17.5) gm/dL Hct 24.0 L (39.0-53.0) % Sodium (137-145) mmol/L BUN (9-20) mg/dL Creatinine (0.66-1.25) mg/dL Calcium (8.4-10.2) mg/dL AST (17-59) U/L Troponin I 0.104 H* (0.000-0.034) ng/mL Total Protein (6.3-8.2) g/dL Albumin (3.5-5.0) g/dL Crossmatch See Detail 01/10/21 01/10/21 Range/Units 04:46 12:31 RBC 2.69 L (4.30-5.90) m/uL Hgb 8.4 L (13.0-17.5) gm/dL Hct 25.4 L (39.0-53.0) % Sodium 136 L (137-145) mmol/L BUN 76 H (9-20) mg/dL Creatinine 2.80 H (0.66-1.25) mg/dL Calcium 7.8 L (8.4-10.2) mg/dL AST 61 H (17-59) U/L Troponin I (0.000-0.034) ng/mL Total Protein 4.7 L (6.3-8.2) g/dL Albumin 2.3 L (3.5-5.0) g/dL Crossmatch Assessment and Plan (1) Rectal bleeding Narrative/Plan: This is an 85-year-old male who came in with an acute lower GI bleed. Patient presented with multiple episodes of bright red blood per rectum for the last 2 days duration with clots. He's had approximately 3 episodes in the emergency department. His last colonoscopy was several years ago according to the family and was unremarkable. But he recently underwent an upper endoscopy less than a week ago at [facility] by Dr. Lam with no evidence of active bleeding, and mild gastritis according to the patient's daughter. Likely patient is dealing with a diverticular bleed but other colorectal pathology cannot be excluded. Patient will proceed with colonoscopy tomorrow morning, will continue with bowel prep this evening. Current Visit: Yes Status: Acute Code(s): K62.5 - HEMORRHAGE OF ANUS AND RECTUM SNOMED Code(s): 60051212 (2) Anemia due to blood loss, acute Current Visit: Yes Status: Acute Code(s): D62 - ACUTE POSTHEMORRHAGIC ANEMIA SNOMED Code(s): 906996952 Plan: 1. Clear liquid diet, nothing by mouth after pending 2. Enema 3. Bowel prep this evening 4. Colonoscopy for today canceled due to poor prep, patient will be rescheduled for tomorrow morning 7 AM 5. Daily CBC, transfuse for hemoglobin less than 7 6. Agree with PRBC transfusion Thank you for this consultation, we will continue to follow Dr. Lam I agree with the dictator's note, documented as a scribe by Ni Lyles.
[2021-01-10] MEDS: LACTATED RINGERS 1,000 ML IV SCH (18:42)
[2021-01-10 20:03] LABS: HCT 28.8 % (39.0-53.0); HGB 9.2 gm/dL (13.0-17.5); MCH 29.3 pg (25.0-35.0); MCV 91.4 fL (80.0-100.0); Mean Platelet Volume 8.8; Platelet Count 221 k/uL (150-450); RBC 3.15 m/uL (4.30-5.90); RDW 14.9 % (11.5-15.5); WBC 8.7 k/uL (3.8-10.6)
[2021-01-10] MEDS: DONEPEZIL 10 MG TAB PO SCH (20:57)
[2021-01-10] MEDS: MELATONIN 5 MG TABLET PO SCH (20:57)
[2021-01-10] MEDS: ATORVASTATIN 80 MG TAB PO SCH (20:57)
[2021-01-10 22:09] VITALS: RESP 18
[2021-01-11 01:10] LABS: HCT 26.7 % (39.0-53.0); HGB 9.2 gm/dL (13.0-17.5); MCH 31.2 pg (25.0-35.0); MCHC 34.5 g/dL (31.0-37.0); MCV 90.5 fL (80.0-100.0); Mean Platelet Volume 8.5; Platelet Count 183 k/uL (150-450); RBC 2.95 m/uL (4.30-5.90); RDW 14.6 % (11.5-15.5); WBC 8.9 k/uL (3.8-10.6)
[2021-01-11] MEDS ORDERED: PROPOFOL 10 MG/ML 20 ML VIAL IV ONE (07:03)
[2021-01-11] MEDS ORDERED: SODIUM CHLORIDE 0.9% 500 ML 500 ML IV ONE (07:35)
--- NOTE | 2021-01-11 08:26 | P.PCN ---
Date of Procedure: 01/11/21 Description of Procedure: BRIEF HISTORY: 85-year-old male who came in with an acute lower GI bleed. Patient presented with multiple episodes of bright red blood per rectum for the last 2 days duration with clots. He's had approximately 3 episodes in the emergency department. His last colonoscopy was several years ago according to the family and was unremarkable. But he recently underwent an upper endoscopy less than a week ago at [facility] with no evidence of active bleeding, and mild gastritis according to the patient's daughter. Likely patient is dealing with a diverticular bleed but other colorectal pathology cannot be excluded. Patient will proceed with colonoscopy tomorrow morning, will continue with bowel prep this evening. PROCEDURE PERFORMED: Colonoscopy with polypectomy, biopsy and tattoo. PREOPERATIVE DIAGNOSIS: GI bleed, anemia of acute blood loss. ESTIMATED BLOOD LOSS: Minimal. IV sedation per Anesthesia. PROCEDURE: After informed consent was obtained, the patient, was brought into the endoscopy unit. IV sedation was administered by Anesthesia under continuous monitoring. Digital rectal examination was normal. Initially the Olympus CF-190 flexible video colonoscope was then inserted in the rectum, gradually advanced into the cecum without any difficulty. Careful examination was performed as the scope was gradually being withdrawn. Ileocecal valve and the appendiceal orifice were visualized and appeared normal. Prep was excellent. Mucosa of the cecum, ascending colon, transverse colon, descending colon, sigmoid colon, and rectum appeared normal, except for a 3.5 cm sigmoid mass located approximately 25 cm from the anal verge and encompassing approximately 25% of the lumen with multiple biopsies taken of the mass and 3 mL of ink used to tattoo both proximal and distal to the mass. Diminutive 2 mm rectosigmoid polyp removed with cold forcep polypectomy. Multiple diverticula noted throughout the colon. Retroflexion was performed in the rectum and no lesions were seen, low-grade internal hemorrhoids seen. The patient tolerated the procedure well. IMPRESSION: Partially obstructing malignant appearing sigmoid mass biopsied and tattooed. Diminutive rectosigmoid polyp removed with cold forcep polypectomy. Mild pandiverticulosis. RECOMMENDATIONS: Findings of this examination were discussed with the patient, the primary team, the patient's daughter/the POA and the surgical service. Await pathology from biopsies. Nothing by mouth for now. Continue to monitor hemoglobin and hematocrit and transfuse as needed. Consider oncology consult for malignant appearing mass and await further recommendations by the surgical service and primary team.
[2021-01-11] MEDS: TAMSULOSIN 0.4 MG CAP.ER.24H PO SCH (08:27)
[2021-01-11] MEDS: QUEtiapine 25 MG TAB PO SCH ×2 (08:27→21:56)
[2021-01-11] MEDS: PANTOPRAZOLE 40 MG TABLET PO SCH ×2 (08:28→21:56)
[2021-01-11 09:40] LABS: Albumin 2.3 g/dL (3.5-5.0); Calcium 7.9 mg/dL (8.4-10.2); Potassium 3.5 mmol/L (3.5-5.1); Total Bilirubin 1.5 mg/dL (0.2-1.3); Total Protein 4.7 g/dL (6.3-8.2)
--- NOTE | 2021-01-11 10:58 | P.PN ---
Subjective Progress Note Date: 01/11/21 HISTORY OF PRESENT ILLNESS: This is a 85 year old male with a past medical history significant for coronary artery disease, hypertension, hyperlipidemia, SVT, GERD, and dementia. Patient follows with Dr. Vela. We have been asked to see the patient in consultation for elevated troponins. Patient examined at the bedside in the emergency room. Patients family member is at the bedside and providing majority of history. She reports patient was taken to [facility] on 12/26/2020 due to weakness. He was diagnosed with Covid 19 and also found to have acute renal failure. Patient developed pneumonia. Patient also developed GI bleeding and underwent EGD per family member. He was discharged to [facility] for rehab. Patient presented back to the hospital today due to GI bleeding. He denies chest pain or pressure. Denies shortness of breath. Denies dizziness or lightheadedness. Family member states patient has been stable from a cardiac standpoint since his stenting in 2015 and has not required any additional cardiac workup or procedures. EKG reveals sinus mechanism with left axis deviation and right bundle branch block. Laboratory data: WBC 13.5. Hemoglobin 9.9. Platelet count 290. Sodium 137. Potassium 4.7. BUN 100. Creatinine 3.49. Potassium 1.6. Troponin 0.105. 0.104. Current home cardiac medications include metoprolol tartrate 25 mg at night, Lasix 40 mg daily, Lipitor 80 mg daily, and aspirin 81 mg daily Most recent echocardiogram obtained in 2016 reveals ejection fraction 30-35%, [id number] mitral regurgitation, mild tricuspid regurgitation, and mild aortic stenosis Cardiac catheterization history: 2016 with stenting of the late thrombosis of the proximal left anterior descending artery with reduction stenosis from 100% to 0%. 01/11/2021 Patient examined this morning at the bedside. Patient underwent colonoscopy yesterday per GI service revealing partially obstructing malignant-appearing sigmoid mass, diminutive rectosigmoid polyp, and mild pandiverticulosis. Patient denies any further rectal bleeding. He denies chest pain or pressure. Denies shortness of breath. Hemoglobin 9.2. BUN 57. Creatinine 2.72. PHYSICAL EXAM: VITAL SIGNS: Reviewed. GENERAL: Well-developed in no acute distress. HEENT: Head is normocephalic. Pupils are equal, round. Sclerae anicteric. Mucous membranes of the mouth are moist. Neck supple. No JVD or thyromegaly LUNGS: Respirations even and unlabored. Lungs diminished bilaterally. HEART: Regular rate and rhythm. S1 and S2 heard. Systolic murmur noted. EXTREMITIES: Normal range of motion. No clubbing or cyanosis. Peripheral pulses intact. No lower extremity edema ASSESSMENT: Covid 19, diagnosed 12/26/2020 at [facility] Coronary artery disease with previous PCI, most recently in 2016 Acute renal failure Acute GI bleeding Abnormal troponins, may be secondary to DALY and acute blood loss anemia, not suggestive of ACS Ischemic cardiomyopathy Hypertension Hyperlipidemia Dementia Partially obstructing malignant-appearing sigmoid mass PLAN: Continue to hold aspirin Continue metoprolol and lipitor 2-D echo ordered. Await results Surgical services consulted for sigmoid mass. Await evaluation. Further recommendations pending patient course Nurse practitioner note has been reviewed by physician. Signing provider agrees with the documented findings, assessment, and plan of care. Objective - Vital Signs Vital signs: Vital Signs Temp 97.8 F 01/11/21 04:00 Pulse 55 L 01/11/21 08:00 Resp 18 01/11/21 08:00 BP 123/63 01/11/21 08:00 Pulse Ox 96 01/11/21 08:00 Intake & Output 01/10/21 01/11/21 01/11/21 18:59 06:59 18:59 Intake Total 0 250 Output Total 1000 Balance -1000 250 Weight 90.718 kg Intake: IV 250 Blood Product 0 Rc Pheresis As-3 Unit 0 [id number] Output: Stool 1000 - Labs CBC & Chem 7: 01/11/21 00:47 01/11/21 07:58 Labs: Abnormal Lab Results - Last 24 Hours (Table) 01/09/21 01/10/21 01/10/21 Range/Units 03:03 12:31 18:49 RBC 2.69 L 3.15 L (4.30-5.90) m/uL Hgb 8.4 L 9.2 L (13.0-17.5) gm/dL Hct 25.4 L 28.8 L (39.0-53.0) % Chloride (98-107) mmol/L Carbon Dioxide (22-30) mmol/L BUN (9-20) mg/dL Creatinine (0.66-1.25) mg/dL Glucose (74-99) mg/dL Calcium (8.4-10.2) mg/dL Total Bilirubin (0.2-1.3) mg/dL AST (17-59) U/L Total Protein (6.3-8.2) g/dL Albumin (3.5-5.0) g/dL Crossmatch See Detail 01/11/21 01/11/21 Range/Units 00:47 07:58 RBC 2.95 L (4.30-5.90) m/uL Hgb 9.2 L (13.0-17.5) gm/dL Hct 26.7 L (39.0-53.0) % Chloride 110 H (98-107) mmol/L Carbon Dioxide 19 L (22-30) mmol/L BUN 57 H (9-20) mg/dL Creatinine 2.72 H (0.66-1.25) mg/dL Glucose 63 L (74-99) mg/dL Calcium 7.9 L (8.4-10.2) mg/dL Total Bilirubin 1.5 H (0.2-1.3) mg/dL AST 67 H (17-59) U/L Total Protein 4.7 L (6.3-8.2) g/dL Albumin 2.3 L (3.5-5.0) g/dL Crossmatch
--- NOTE | 2021-01-11 11:25 | P.PN ---
Subjective Progress Note Date: 01/11/21 HISTORY OF PRESENT ILLNESS This is an 85-year-old male patient of Dr. 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 Patient was recently seen at [facility] by GI and underwent EGD. Patient was subsequently discharged to [facility] for subacute rehab and he has had dark tarry stools but now having bright red clots. Patient was transferred to [facility] for evaluation and found to be afebrile, heart rate 58, blood pressure 128/72, pulse ox 98% on room air. WBC 15.5, hemoglobin 9.9, platelet count 290. INR 0.9. Electrolytes normal, BUN 100 and creatinine 3.49. Glucose 130. Magnesium 2.3, total bilirubin 1.6, AST 65, ALT 50, alkaline phosphatase 94. Troponin 0.105, 0.104. CK 78. Patient denies having any chest pain at this time. Patient has been seen by GI with plan for EGD and colonoscopy. Cardiology consult added and repeat troponins ordered as well as echocardiogram and EKG. 01/10: Patient remains in the emergency center waiting for a bed on the cardiac stepdown unit. Patient is actively having bleeding while receiving prep for EGD colonoscopy was which is scheduled for today. Patient denies any pain. Patient is tired today. CBC ordered for every 8 hours. Hemoglobin today is at 7.8 and 1 unit of packed RBCs will be ordered. He has been afebrile, heart rate 80, blood pressure 98/60, pulse ox 97% on room air. WBC 10.3, hemoglobin repeat is 8.4, platelet count 229. Sodium 136, potassium 4.0, chloride 105, CO2 25, BUN 76 creatinine 2.8. Patient has been seen by cardiology and acute coronary syndrome ruled out. 01/11: Patient underwent colonoscopy this morning which found partially obstructing malignant-appearing sigmoid mass biopsied and tattooed. Diminished to rectosigmoid polyp removed. Mild hernandez diverticulosis. General surgery with Dr. Juarez was added. She has a ordered a CAT scan of the abdomen and pelvis without contrast and we will add to that a chest as well. CRP and sed rate ordered as well as CEA. Patient is followed by cardiology as well. Echocardiogram has been obtained and results are pending. Aspirin is on hold. Patient's daughter is at bedside and has been updated. REVIEW OF SYSTEMS Constitutional: No fever, no chills, no night sweats. No weight change. No weakness, fatigue or lethargy. No daytime sleepiness. EENT: No headache. No blurred vision or double vision, no loss of vision. C hronic loss of Hearing, no ringing in the ears, no dizziness. No nasal drainage or congestion. No epistaxis. No sore throat. Lungs: No shortness of breath, cough, no sputum production. No wheezing. Cardiovascular: No chest pain, no lower extremity edema. No palpitations. No paroxysmal nocturnal dyspnea. No orthopnea. No lightheadedness or dizziness. No syncopal episodes. Abdominal: No abdominal pain. No nausea, vomiting. No diarrhea. No constipation. Reports bloody or tarry stools. No loss of appetite. Genitourinary: No dysuria, increased frequency, urgency. No urinary retention. Musculoskeletal: No myalgias. No muscle weakness, no gait dysfunction, no frequent falls. No back pain. No neck pain. Integumentary: No wounds, no lesions. No rash or pruritus. No unusual bruis ing. No change in hair or nails. Neurologic: No aphasia. No facial droop. No change in mentation. No head injury. No headache. No paralysis. No paresthesia. Psychiatric: No depression. No anxiety. No mood swings. Endocrine: No abnormal blood sugars. PHYSICAL EXAMINATION Gen: This is an 85-year-old male patient, resting in bed and appears to be comfortable. Daughter is at bedside HEENT: Head is atraumatic, normocephalic. Pupils equal, round. Sclerae is anicteric. Patient is very hard of hearing. NECK: Supple. No JVD. No lymphadenopathy. No thyromegaly. LUNGS: Clear to auscultation. No wheezes or rhonchi. No intercostal retractions. HEART: Regular rate and rhythm. 2/6 systolic ejection murmur murmur. ABDOMEN: Soft. Bowel sounds are present. No masses. No tenderness. EXTREMITIES: No pedal edema. No calf tenderness. NEUROLOGICAL: Patient is awake, alert and oriented x3. Cranial nerves 2 through 12 are grossly intact. ASSESSMENT AND PLAN 1. Acute GI bleed most likely secondary to colon mass, possible malignancy. Patient has been seen by GI status post colonoscopy. A consult with Gen. surgery added, sed rate and CRP. Continue Protonix 40 mg twice daily, IV fluids 0.9 normal saline at 100 mL per hour. 2. Acute kidney injury most likely secondary to acute GI bleed. Consult with Dr. Lemus. Hold Lasix, discontinue Decadron. 3. Elevated troponins secondary to renal failure. Repeat troponins, EKG, echocardiogram and cardiology consult ordered. 4. History of coronary artery disease with previous stenting. Hold aspirin. Continue Lipitor and Lopressor 25 mg at bedtime 5. Hypertension. Continue Lopressor. 6. Hyperlipidemia. Continue Lipitor. 7. Chronic kidney disease stage III. 8. Benign prostatic hypertrophy. Continue Flomax 0.4 mg daily. 9. Dementia. Continue Aricept 10 mg at bedtime. 10. Recurrent depression. Continue Seroquel 25 mg twice daily. 11. Recent Covid 19 pneumonia diagnosed on December 27, stable. 12. COVID-19 testing positive. DISCHARGE PLAN Return to [facility] Impression and plan of care have been directed as dictated by the signing physician. Dionne Kaur nurse practitioner acting as scribe for signing physician. Objective - Vital Signs Vital signs: Vital Signs Temp 97.8 F 01/11/21 04:00 Pulse 70 01/11/21 04:00 Resp 18 01/11/21 04:00 BP 128/75 01/11/21 04:00 Pulse Ox 95 01/11/21 04:00 Intake & Output 01/10/21 01/11/21 01/11/21 18:59 06:59 18:59 Intake Total 0 250 Output Total 1000 Balance -1000 250 Weight 90.718 kg Intake: IV 250 Blood Product 0 Rc Pheresis As-3 Unit 0 [id number] Output: Stool 1000 - Labs CBC & Chem 7: 01/11/21 00:47 01/11/21 07:58 Labs: Abnormal Lab Results - Last 24 Hours (Table) 01/09/21 01/10/21 01/10/21 Range/Units 03:03 12:31 18:49 RBC 2.69 L 3.15 L (4.30-5.90) m/uL Hgb 8.4 L 9.2 L (13.0-17.5) gm/dL Hct 25.4 L 28.8 L (39.0-53.0) % Chloride (98-107) mmol/L Carbon Dioxide (22-30) mmol/L BUN (9-20) mg/dL Creatinine (0.66-1.25) mg/dL Glucose (74-99) mg/dL Calcium (8.4-10.2) mg/dL Total Bilirubin (0.2-1.3) mg/dL AST (17-59) U/L Total Protein (6.3-8.2) g/dL Albumin (3.5-5.0) g/dL Crossmatch See Detail 01/11/21 01/11/21 Range/Units 00:47 07:58 RBC 2.95 L (4.30-5.90) m/uL Hgb 9.2 L (13.0-17.5) gm/dL Hct 26.7 L (39.0-53.0) % Chloride 110 H (98-107) mmol/L Carbon Dioxide 19 L (22-30) mmol/L BUN 57 H (9-20) mg/dL Creatinine 2.72 H (0.66-1.25) mg/dL Glucose 63 L (74-99) mg/dL Calcium 7.9 L (8.4-10.2) mg/dL Total Bilirubin 1.5 H (0.2-1.3) mg/dL AST 67 H (17-59) U/L Total Protein 4.7 L (6.3-8.2) g/dL Albumin 2.3 L (3.5-5.0) g/dL Crossmatch
[2021-01-11] MEDS: IOPAMIDOL CONTRAST (ORAL USE) VIAL PO PRN ×2 (11:31→12:25)
--- NOTE | 2021-01-11 14:08 | CT ---
EXAMINATION TYPE: CT ChestAbdPelvis wo con DATE OF EXAM: 01/11/2021 INDICATION: colon mass COMPARISON: None CT DLP: 670.6 mGycm CONTRAST: Performed with Oral Contrast. No intravenous contrast. TECHNIQUE: Axial images at 5 mm thick sections. Reconstructed images in the coronal plane. Delayed images through the kidneys. FINDINGS: CT CHEST: Portion of the thyroid visualized is normal. There is scattered peripheral areas of pneumonitis through the bilateral lung benoit. Findings are no nspecific. Consider atypical pneumonia. Metastatic disease is considered less likely. Scattered calcified lymphadenopathy is present within the mediastinum. No enlarged nodes are evident. The ascending aorta diameter at the level of the main pulmonary artery is 3.7 cm. The main pulmonary artery diameter at the bifurcation is 2.7 cm. Coronary artery calcification is present. CT ABDOMEN: Liver: Normal Spleen: Scattered calcified granulomata throughout the spleen. Pancreas: Normal Adrenal glands: The adrenal glands are normal. Gallbladder: Normal Kidneys: Left kidney is absent. No masses are evident. No hydronephrosis is present. There is a 2.4 cm cyst anterior to the mid to inferior pole right kidney. No renal stones are identified. Aorta: Vascular calcification is within the aorta. Inferior vena cava: Normal. CT PELVIS: There appears to be a circumferential area of narrowing within the distal sigmoid colon near the rect osigmoid junction. This may be the patient's reported colon cancer. Correlate with the history. There may be asymmetric wall thickening along the right lateral aspect of the mid right wall of the sigmoi d colon. Example image series 202 image 51, series 201 image 98 this is proximal to the suspected can cer. Second neoplasm should be considered. There are loops of bowel which are incompletely distended or lack oral contrast limiting their evaluation. Some very minimal fluid within the pelvis may be pre sent. Appendix: Not identified. No dilated tubular structure or inflammatory changes are evident Urinary bladder: Decompressed with Corral catheter limiting evaluation Genitourinary structures: The prostate appears normal. Some calcification is present Osseous structures: No suspicious lytic or sclerotic lesions are evident. IMPRESSIONS: 1. Apple core type lesion appears to be at the distal rectosigmoid junction. There is however an ángel tional slightly more proximal mid sigmoid colon wall thickening along the right aspect identified. A second lesion should be considered. 2. No suspicious metastatic lesions identified.
[2021-01-11 14:49] LABS: Appearance,Urine Clear (Clear); Bacteria,Urine Rare /hpf; Bilirubin,Urine Negative (Negative); Blood,Urine Trace (Negative); Color,Urine Light Yellow; Glucose,Urine (UA) Negative (Negative); Hyaline Casts,Urine 1 /lpf (0-2); Ketones,Urine Negative (Negative); Leukocyte Esterase,Urine Negative (Negative); Mucus,Urine Rare /hpf; Nitrite,Urine Negative (Negative); PH, Urine 5.5 (5.0-8.0); Protein,Urine Trace (Negative); RBC,Urine 11 /hpf (0-5); Specific Gravity,Urine 1.015 (1.001-1.035); Squamous Epithelial Cell,Urine <1 /hpf (0-4); Urobilinogen,Urine <2.0 mg/dL (<2.0); WBC,Urine 3 /hpf (0-5)
--- NOTE | 2021-01-11 15:43 | PN ---
PROGRESS NOTE Patient is seen for followup for acute kidney injury, mostly prerenal, currently improving with IV hydration. Patient is status post colonoscopy done this morning which did show evidence of colonic mass and surgery has been consulted. PHYSICAL EXAMINATION: On examination today, blood pressure is 128/75, heart rate 70 per minute. Patient is afebrile. He has no evidence of edema lower extremities. He is euvolemic. Abdomen is soft, nontender. SALESPERSON M[employer]'S HATS exam grossly intact. Patient is hard of hearing. LAB: Show sodium 139, potassium 3.5, chloride 110, CO2 is 19, BUN 57, creatinine 2.72, hemoglobin 9.2 g/dL. ASSESSMENT: 1. Acute kidney injury, mostly prerenal, currently improving with IV hydration. 2. Chronic kidney disease, baseline creatinine possibly around 2 mg/dL. 3. Gastrointestinal bleed status post colonoscopy which showed colon mass. Surgery has been consulted. Most likely colon cancer. Pathology is this pending. 4. Dyslipidemia. PLAN: Continue with IV fluids for now. Avoid nephrotoxic agents. I will reorder the UA as it has not been done yet. MMODL / IJN: [id number] /
--- NOTE | 2021-01-11 18:47 | P.GSCN ---
History of Present Illness Consult date: 01/11/21 Reason for Consult: Colon tumor and GI bleeding History of present illness: The patient is a 85-year-old man who was admitted with GI bleeding. He has a history of COVID-19 and was recently discharged from [facility]. He had some anemia noted at that time in the EGD showed just some gastritis. He went to [facility] for rehab. While there he had GI bleeding and was sent to [facility]. The patient underwent a colonoscopy by Dr. Lam and was found to have a colon tumor. The patient has dementia and has been very sleepy the last 2 days per his daughter. Prior to coming down with COVID-19 he was fairly functional at home, even with the dementia. Over the last few days however he has not been very responsive and then very sleepy. During prior admission he also had some significant renal failure which has slowly been improving. Review of Systems All systems: negative Past Medical History Past Medical History: Coronary Artery Disease (CAD), Dementia, GERD/Reflux, GI Bleed, Hearing Disorder / Deafness, Hyperlipidemia, Hypertension, Myocardial Infarction ([place]), Musculoskeletal Disorder, Prostate Disorder, Renal Disease, Supraventricular Tachycardia (SVT) Additional Past Medical History / Comment(s): Pt recently admitted acute kidney injury, acute tubular necrosis, UTI with retention/IDC, covid 19 infection/pneumonia, hyperkalemia, uremic encephalopathy. 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 Past Anesthesia/Blood Transfusion Reactions: No Reported Reaction Date of Last Stent Placement:: 09/18/2014 Smoking Status: Never smoker - Past Family History Father Family Medical History: Myocardial Infarction ([place]) Additional Family Medical History / Comment(s): at age 56 from myocardial infarction. Mother Family Medical History: Coronary Artery Disease (CAD), Dementia Additional Family Medical History / Comment(s): Mother at age 74. Brother(s) Family Medical History: Coronary Artery Disease (CAD), Myocardial Infarction ([place]) Additional Family Medical History / Comment(s): One brother alive underwent [place] and CABG Daughter(s) Additional Family Medical History / Comment(s): He has 4 daughters with no major medical problems. He has 2 great stepsons and 2 stepdaughters. Medications and Allergies Home Medications Medication Instructions Recorded Confirmed Type Multivitamins, Thera [Multivitamin 1 tab PO DAILY@0800 02/02/15 01/09/21 History (formulary)] Acetaminophen Tab [Tylenol] 650 mg PO Q6H PRN 01/09/21 01/09/21 History Albuterol Sulfate [Albuterol 2 puff INHALATION RT-Q6H PRN 01/09/21 01/09/21 H istory Sulfate Hfa] Ascorbic Acid [Vitamin C] 1,000 mg PO DAILY@169901/09/21 01/09/21 History Aspirin 81 mg PO DAILY@169901/09/21 01/09/21 History Atorvastatin [Lipitor] 80 mg PO HS@209901/09/21 01/09/21 History Cholecalciferol (Vitamin D3) 125 mcg PO DAILY@169901/09/21 01/09/21 History [Vitamin D3 (5000 Iu)] Dexamethasone [Decadron] 6 mg PO DAILY@79901/09/21 01/09/21 History Donepezil [Aricept] 10 mg PO HS@209901/09/21 01/09/21 History Furosemide [Lasix] 40 mg PO DAILY@79901/09/21 01/09/21 History Lactose-Reduced Food [Ensure Plus] 1 can PO TID@0800,1200,169901/09/21 01/09/21 History Magnesium Hydroxide [Milk of 2,400 ml PO Q48H PRN 01/09/21 01/09/21 History Magnesia] Magnesium Oxide [Mag-Ox] 400 mg PO DAILY@169901/09/21 01/09/21 History Melatonin 10 mg PO HS@209901/09/21 01/09/21 History Menthol-Zinc Oxide Oint 1 applic TOPICAL DAILY PRN 01/09/21 01/09/21 History [Calmoseptine Oint] Metoprolol Tartrate [Lopressor] 25 mg PO HS@209901/09/21 01/09/21 History Na Phos,M-B/Na Phos,Di-Ba [Fleet 133 ml RECTAL DAILY PRN 01/09/21 01/09/21 History Adult] Pantoprazole Sodium [Protonix] 40 mg PO BID@0800,209901/09/21 01/09/21 History QUEtiapine [SEROquel] 25 mg PO BID@0800,209901/09/21 01/09/21 History Tamsulosin [Flomax] 0.4 mg PO DAILY@0800 01/09/21 01/09/21 History bisacodyL [Dulcolax] 10 mg RECTAL DAILY PRN 01/09/21 01/09/21 History Allergies Allergy/AdvReac Type Severity Reaction Status Date / Time codeine Allergy heartburn Verified 01/09/21 08:04 Surgical - Exam Osteopathic Statement: *. No significant issues noted on an osteopathic structural exam other than those noted in the History and Physical/Consult. Vital Signs Temp Pulse Resp BP Pulse Ox 97.4 F L 58 L 18 128/72 98 01/09/21 02:29 01/09/21 02:29 01/09/21 02:29 01/09/21 02:29 01/09/21 02:29 - General Sleepy, response to verbal and tactile stimuli well developed, well nourished - Neck trachea midline - Respiratory normal respiratory effort, clear to auscultation - Cardiovascular Rhythm: regular - Abdomen Abdomen: soft, non tender, bowel sounds, surgical scars (Right lower quadrant and periumbilical) Results - Labs 01/11/21 00:47 01/11/21 07:58 Abnormal Lab Results - Last 24 Hours (Table) 01/10/21 01/11/21 01/11/21 Range/Units 18:49 00:47 06:50 RBC 3.15 L 2.95 L (4.30-5.90) m/uL Hgb 9.2 L 9.2 L (13.0-17.5) gm/dL Hct 28.8 L 26.7 L (39.0-53.0) % ESR (0-15) mm/hr Chloride (98-107) mmol/L Carbon Dioxide (22-30) mmol/L BUN (9-20) mg/dL Creatinine (0.66-1.25) mg/dL Glucose (74-99) mg/dL Calcium (8.4-10.2) mg/dL Total Bilirubin (0.2-1.3) mg/dL AST (17-59) U/L C-Reactive Protein (<1.0) mg/dL Total Protein (6.3-8.2) g/dL Albumin (3.5-5.0) g/dL Urine Protein Trace H (Negative) Urine Blood Trace H (Negative) Urine RBC 11 H (0-5) /hpf Urine Bacteria Rare H (None) /hpf Urine Mucus Rare H (None) /hpf 01/11/21 01/11/21 01/11/21 Range/Units 07:58 07:58 07:58 RBC (4.30-5.90) m/uL Hgb (13.0-17.5) gm/dL Hct (39.0-53.0) % ESR 47 H (0-15) mm/hr Chloride 110 H (98-107) mmol/L Carbon Dioxide 19 L (22-30) mmol/L BUN 57 H (9-20) mg/dL Creatinine 2.72 H (0.66-1.25) mg/dL Glucose 63 L (74-99) mg/dL Calcium 7.9 L (8.4-10.2) mg/dL Total Bilirubin 1.5 H (0.2-1.3) mg/dL AST 67 H (17-59) U/L C-Reactive Protein 6.7 H (<1.0) mg/dL Total Protein 4.7 L (6.3-8.2) g/dL Albumin 2.3 L (3.5-5.0) g/dL Urine Protein (Negative) Urine Blood (Negative) Urine RBC (0-5) /hpf Urine Bacteria (None) /hpf Urine Mucus (None) /hpf Diabetes panel 01/11/21 Range/Units 07:58 Sodium 139 (137-145) mmol/L Potassium 3.5 (3.5-5.1) mmol/L Chloride 110 H (98-107) mmol/L Carbon Dioxide 19 L (22-30) mmol/L BUN 57 H (9-20) mg/dL Creatinine 2.72 H (0.66-1.25) mg/dL Glucose 63 L (74-99) mg/dL Calcium 7.9 L (8.4-10.2) mg/dL AST 67 H (17-59) U/L ALT 34 (4-49) U/L Alkaline Phosphatase 56 (38-126) U/L Total Protein 4.7 L (6.3-8.2) g/dL Albumin 2.3 L (3.5-5.0) g/dL Calcium panel 01/11/21 Range/Units 07:58 Calcium 7.9 L (8.4-10.2) mg/dL Albumin 2.3 L (3.5-5.0) g/dL Pituitary panel 01/11/21 Range/Units 07:58 Sodium 139 (137-145) mmol/L Potassium 3.5 (3.5-5.1) mmol/L Chloride 110 H (98-107) mmol/L Carbon Dioxide 19 L (22-30) mmol/L BUN 57 H (9-20) mg/dL Creatinine 2.72 H (0.66-1.25) mg/dL Glucose 63 L (74-99) mg/dL Calcium 7.9 L (8.4-10.2) mg/dL Adrenal panel 01/11/21 Range/Units 07:58 Sodium 139 (137-145) mmol/L Potassium 3.5 (3.5-5.1) mmol/L Chloride 110 H (98-107) mmol/L Carbon Dioxide 19 L (22-30) mmol/L BUN 57 H (9-20) mg/dL Creatinine 2.72 H (0.66-1.25) mg/dL Glucose 63 L (74-99) mg/dL Calcium 7.9 L (8.4-10.2) mg/dL Total Bilirubin 1.5 H (0.2-1.3) mg/dL AST 67 H (17-59) U/L ALT 34 (4-49) U/L Alkaline Phosphatase 56 (38-126) U/L Total Protein 4.7 L (6.3-8.2) g/dL Albumin 2.3 L (3.5-5.0) g/dL - Imaging CT scan - abdomen: report reviewed Assessment and Plan (1) Colon tumor Current Visit: Yes Status: Acute Code(s): D49.0 - NEOPLASM OF UNSPECIFIED BEHAVIOR OF DIGESTIVE SYSTEM SNOMED Code(s): 168885119 (2) Coronary artery disease Current Visit: Yes Status: Acute Code(s): I25.10 - ATHSCL HEART DISEASE OF [place] CORONARY ARTERY W/O ANG PCTRS SNOMED Code(s): 27372969 (3) Dementia Current Visit: Yes Status: Acute Code(s): F03.90 - UNSPECIFIED DEMENTIA WITHOUT BEHAVIORAL DISTURBANCE SNOMED Code(s): 73014326 (4) Personal history of COVID-19 Current Visit: Yes Status: Acute Code(s): Z86.16 - Personal history of COVID-19 SNOMED Code(s): 110131851218097966 (5) ARF (acute renal failure) Current Visit: Yes Status: Acute Code(s): N17.9 - ACUTE KIDNEY FAILURE, UNSPECIFIED SNOMED Code(s): 96204213 (6) Anemia due to blood loss, acute Current Visit: Yes Status: Acute Code(s): D62 - ACUTE POSTHEMORRHAGIC ANEMIA SNOMED Code(s): 489030676 (7) HTN (hypertension) Current Visit: No Status: Acute Code(s): I10 - ESSENTIAL (PRIMARY) HYPERTENSION SNOMED Code(s): 31800783 (8) Hyperlipemia Current Visit: No Status: Acute Code(s): E78.5 - HYPERLIPIDEMIA, UNSPECIFIED SNOMED Code(s): 86051431 Plan: I had a long talk with the patient's daughter. Functionally the patient is very weak and not in his usual state of health to the recent COVID-19 pneumonia, renal failure and anemia. CT shows no evidence of metastatic disease. I'd recommend we try to give the patient 2-4 weeks to functionally improved prior to surgery. He can be started on iron supplementation. Physical therapy for strengthening. We can attempt a robotic colon resection however given previous open abdominal surgeries this may not be feasible. We discussed postoperative course open versus robotic. Questions were encouraged and answered. I'll see him in the office in 2-4 weeks and we'll see how he is doing functionally at that point. I will discuss the case with Dr. Eyad in the morning. Further recommendations to follow.
[2021-01-11] MEDS: LACTATED RINGERS 1,000 ML IV SCH (19:02)
[2021-01-11] MEDS: MELATONIN 5 MG TABLET PO SCH (21:56)
[2021-01-11] MEDS: DONEPEZIL 10 MG TAB PO SCH (21:56)
[2021-01-11] MEDS: ATORVASTATIN 80 MG TAB PO SCH (21:56)
[2021-01-11] MEDS: METOPROLOL TARTRATE 25 MG TAB PO SCH (21:56)
[2021-01-12] MEDS: SODIUM CHLORIDE 0.9% 1,000 ML IV SCH ×3 (09:30→09:33)
[2021-01-12] MEDS: TAMSULOSIN 0.4 MG CAP.ER.24H PO SCH (09:31)
[2021-01-12] MEDS: QUEtiapine 25 MG TAB PO SCH (09:31)
[2021-01-12] MEDS: PANTOPRAZOLE 40 MG TABLET PO SCH (09:31)
--- NOTE | 2021-01-12 10:03 | P.DS ---
Providers Date of admission: 01/09/21 13:39 Expected date of discharge: 01/12/21 Attending physician: Jose Castano Consults: 01/09/21 05:11 Consult Physician Routine Consulting Provider: Modesto Lam Consult Reason/Comments: gib Do you want consulting provider notified?: Yes Consult Physician Routine Consulting Provider: Xin Lemus Consult Reason/Comments: arf Do you want consulting provider notified?: Yes 01/09/21 10:57 Consult Physician Routine Consulting Provider: Edis Lopez Consult Reason/Comments: troponin elevation Do you want consulting provider notified?: Yes 01/11/21 09:32 Consult Physician Routine Consulting Provider: Rosy Juarez Consult Reason/Comments: Sigmoid mass Do you want consulting provider notified?: Already Contacted Primary care physician: Jose Castano [facility] Course: HISTORY OF PRESENT ILLNESS This is an 85-year-old male patient of Dr. 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 Patient was recently seen at [facility] by GI and underwent EGD. Patient was subsequently discharged to [facility] for subacute rehab and he has had dark tarry stools but now having bright red clots. Patient was transferred to [facility] for evaluation and found to be afebrile, heart rate 58, blood pressure 128/72, pulse ox 98% on room air. WBC 15.5, hemoglobin 9.9, platelet count 290. INR 0.9. Electrolytes normal, BUN 100 and creatinine 3.49. Glucose 130. Magnesium 2.3, total bilirubin 1.6, AST 65, ALT 50, alkaline phosphatase 94. Troponin 0.105, 0.104. CK 78. Patient denies having any chest pain at this time. Patient has been seen by GI with plan for EGD and colonoscopy. Cardiology consult added and repeat troponins ordered as well as echocardiogram and EKG. 01/10: Patient remains in the emergency center waiting for a bed on the cardiac stepdown unit. Patient is actively having bleeding while receiving prep for EGD colonoscopy was which is scheduled for today. Patient denies any pain. Patient is tired today. CBC ordered for every 8 hours. Hemoglobin today is at 7.8 and 1 unit of packed RBCs will be ordered. He has been afebrile, heart rate 80, blood pressure 98/60, pulse ox 97% on room air. WBC 10.3, hemoglobin repeat is 8.4, platelet count 229. Sodium 136, potassium 4.0, chloride 105, CO2 25, BUN 76 creatinine 2.8. Patient has been seen by cardiology and acute coronary syndrome ruled out. 01/11: Patient underwent colonoscopy this morning which found partially obstructing malignant-appearing sigmoid mass biopsied and tattooed. Diminished to rectosigmoid polyp removed. Mild hernandez diverticulosis. General surgery with Dr. Juarez was added. She has a ordered a CAT scan of the abdomen and pelvis without contrast and we will add to that a chest as well. CRP and sed rate ordered as well as CEA. Patient is followed by cardiology as well. Echocardiogram has been obtained and results are pending. Aspirin is on hold. Patient's daughter is at bedside and has been updated. 01/12: CAT scan of the chest abdomen and pelvis revealed apple core type lesion appears to be at the distal rectosigmoid junction. However additional slightly more proximal mid sigmoid colon wall thickening along the right aspect identified. A second lesion should be considered. No suspicious metastatic lesions identified. Patient has been seen by Dr. Juarez and she has advised giving the patient 2-4 weeks to functionally improved prior to surgery, start iron supplementation, follow up with the office in 2-4 weeks. Patient has been seen and followed by nephrology for acute kidney injury that is improving. Yesterday sed rate came back at 47 and C-reactive protein at 6.7. Repeat BUN 57 and creatinine 2.72. CEA is pending. Repeat hemoglobin 8.8. Patient will be started on ferrous sulfate twice daily. He has been afebrile, heart rate 70, blood pressure 141/67, pulse ox 99% on room air. Patient will be discharged back to [facility] today under the care of Dr. Castano in stable condition. ASSESSMENT AND PLAN 1. Acute GI bleed most likely secondary to colon mass, possible malignancy. 2. Acute kidney injury most likely secondary to acute GI bleed. 3. Elevated troponins secondary to renal failure. 4. History of coronary artery disease with previous stenting. 5. Hypertension. 6. Hyperlipidemia. 7. Chronic kidney disease stage III. 8. Benign prostatic hypertrophy. 9. Dementia. 10. Recurrent depression. 11. Recent Covid 19 pneumonia diagnosed on December 27. 12. COVID-19 testing positive. DISCHARGE PLAN Return to [facility] Impression and plan of care have been directed as dictated by the signing physician. Dionne Kaur nurse practitioner acting as scribe for signing physician. Patient Condition at Discharge: Stable Plan - Discharge Summary Discharge Rx Participant: No New Discharge Prescriptions: New Ferrous Sulfate [Feosol] 325 mg PO BID #60 tab Continue Multivitamins, Thera [Multivitamin (formulary)] 1 tab PO DAILY@0800 Albuterol Sulfate [Albuterol Sulfate Hfa] 2 puff INHALATION RT-Q6H PRN PRN Reason: Shortness Of Breath Lactose-Reduced Food [Ensure Plus] 1 can PO TID@0800,1200,1700 Melatonin 10 mg PO HS@2100 Magnesium Oxide [Mag-Ox] 400 mg PO DAILY@1700 Donepezil [Aricept] 10 mg PO HS@2100 Atorvastatin [Lipitor] 80 mg PO HS@2100 Aspirin 81 mg PO DAILY@1700 Na Phos,M-B/Na Phos,Di-Ba [Fleet Adult] 133 ml RECTAL DAILY PRN PRN Reason: Constipation bisacodyL [Dulcolax] 10 mg RECTAL DAILY PRN PRN Reason: Constipation Menthol-Zinc Oxide Oint [Calmoseptine Oint] 1 applic TOPICAL DAILY PRN PRN Reason: Rash Acetaminophen Tab [Tylenol] 650 mg PO Q6H PRN PRN Reason: Pain QUEtiapine [SEROquel] 25 mg PO BID@0800,2100 Pantoprazole Sodium [Protonix] 40 mg PO BID@0800,2100 Tamsulosin [Flomax] 0.4 mg PO DAILY@0800 Metoprolol Tartrate [Lopressor] 25 mg PO HS@2100 Magnesium Hydroxide [Milk of Magnesia] 2,400 ml PO Q48H PRN PRN Reason: Constipation Changed Furosemide [Lasix] 20 mg PO DAILY@0800 #0 Discontinued Dexamethasone [Decadron] 6 mg PO DAILY@0800 Cholecalciferol (Vitamin D3) [Vitamin D3 (5000 Iu)] 125 mcg PO DAILY@1699 Ascorbic Acid [Vitamin C] 1,000 mg PO DAILY@170 Discharge Medication List Multivitamins, Thera [Multivitamin (formulary)] 1 tab PO DAILY@0800 09/12/14 [History] Acetaminophen Tab [Tylenol] 650 mg PO Q6H PRN 01/09/21 [History] Albuterol Sulfate [Albuterol Sulfate Hfa] 2 puff INHALATION RT-Q6H PRN 01/09/21 [History] Aspirin 81 mg PO DAILY@169901/09/21 [History] Atorvastatin [Lipitor] 80 mg PO HS@209901/09/21 [History] Donepezil [Aricept] 10 mg PO HS@209901/09/21 [History] Lactose-Reduced Food [Ensure Plus] 1 can PO TID@0800,1200,169901/09/21 [History] Magnesium Hydroxide [Milk of Magnesia] 2,400 ml PO Q48H PRN 01/09/21 [History] Magnesium Oxide [Mag-Ox] 400 mg PO DAILY@169901/09/21 [History] Melatonin 10 mg PO HS@209901/09/21 [History] Menthol-Zinc Oxide Oint [Calmoseptine Oint] 1 applic TOPICAL DAILY PRN 01/09/21 [History] Metoprolol Tartrate [Lopressor] 25 mg PO HS@209901/09/21 [History] Na Phos,M-B/Na Phos,Di-Ba [Fleet Adult] 133 ml RECTAL DAILY PRN 01/09/21 [History] Pantoprazole Sodium [Protonix] 40 mg PO BID@0800,209901/09/21 [History] QUEtiapine [SEROquel] 25 mg PO BID@0800,209901/09/21 [History] Tamsulosin [Flomax] 0.4 mg PO DAILY@79901/09/21 [History] bisacodyL [Dulcolax] 10 mg RECTAL DAILY PRN 01/09/21 [History] Ferrous Sulfate [Feosol] 325 mg PO BID #60 tab 01/12/21 [Rx] Furosemide [Lasix] 20 mg PO DAILY@0800 #0 01/12/21 [Rx] Follow up Appointment(s)/Referral(s): Jose Castano MD [Primary Care Provider] - 1 Week (at [facility]) Discharge Disposition: TRANSFER TO SNF/ECF
[2021-01-12 10:33] VITALS: TEMP 98.3
[2021-01-12 10:37] LABS: Basophils % (A) 0 %; Eosinophils # (A) 0.1 k/uL (0-0.7); Eosinophils % (A) 1 %; HCT 26.3 % (39.0-53.0); HGB 8.8 gm/dL (13.0-17.5); Lymphocytes # (A) 0.7 k/uL (1.0-4.8); Lymphocytes % (A) 8 %; MCH 30.6 pg (25.0-35.0); MCHC 33.4 g/dL (31.0-37.0); MCV 91.7 fL (80.0-100.0); Mean Platelet Volume 8.5; Monocytes # (A) 0.6 k/uL (0-1.0); Monocytes % (A) 7 %; Neutrophils # (A) 6.4 k/uL (1.3-7.7); Neutrophils % (A) 82 %; Platelet Count 187 k/uL (150-450); RBC 2.87 m/uL (4.30-5.90); RDW 14.3 % (11.5-15.5); WBC 7.7 k/uL (3.8-10.6)
[2021-01-12 11:59] VITALS: BP 128/68; PULSE 76
--- NOTE | 2021-01-12 12:15 | P.PN ---
Subjective Progress Note Date: 01/12/21 HISTORY OF PRESENT ILLNESS: This is a 85 year old male with a past medical history significant for coronary artery disease, hypertension, hyperlipidemia, SVT, GERD, and dementia. Patient follows with Dr. Vela. We have been asked to see the patient in consultation for elevated troponins. Patient examined at the bedside in the emergency room. Patients family member is at the bedside and providing majority of history. She reports patient was taken to [facility] on 12/26/2020 due to weakness. He was diagnosed with Covid 19 and also found to have acute renal failure. Patient developed pneumonia. Patient also developed GI bleeding and underwent EGD per family member. He was discharged to [facility] for rehab. Patient presented back to the hospital today due to GI bleeding. He denies chest pain or pressure. Denies shortness of breath. Denies dizziness or lightheadedness. Family member states patient has been stable from a cardiac standpoint since his stenting in 2015 and has not required any additional cardiac workup or procedures. EKG reveals sinus mechanism with left axis deviation and right bundle branch block. Laboratory data: WBC 13.5. Hemoglobin 9.9. Platelet count 290. Sodium 137. Potassium 4.7. BUN 100. Creatinine 3.49. Potassium 1.6. Troponin 0.105. 0.104. Current home cardiac medications include metoprolol tartrate 25 mg at night, Lasix 40 mg daily, Lipitor 80 mg daily, and aspirin 81 mg daily Most recent echocardiogram obtained in 2016 reveals ejection fraction 30-35%, [id number] mitral regurgitation, mild tricuspid regurgitation, and mild aortic stenosis Cardiac catheterization history: 2016 with stenting of the late thrombosis of the proximal left anterior descending artery with reduction stenosis from 100% to 0%. 01/11/2021 Patient examined this morning at the bedside. Patient underwent colonoscopy yesterday per GI service revealing partially obstructing malignant-appearing sigmoid mass, diminutive rectosigmoid polyp, and mild pandiverticulosis. Patient denies any further rectal bleeding. He denies chest pain or pressure. Denies shortness of breath. Hemoglobin 9.2. BUN 57. Creatinine 2.72. 01/12/2021 Patient examined at the bedside. He is awake but remains pleasantly confused. He denies chest pain or pressure. Denies shortness of breath. He was evaluated by eneral surgery with no immediate plans for surgery. Vital signs are stable. PHYSICAL EXAM: VITAL SIGNS: Reviewed. GENERAL: Well-developed in no acute distress. HEENT: Head is normocephalic. Pupils are equal, round. Sclerae anicteric. Mucous membranes of the mouth are moist. Neck supple. No JVD or thyromegaly LUNGS: Respirations even and unlabored. Lungs diminished bilaterally. HEART: Regular rate and rhythm. S1 and S2 heard. Systolic murmur noted. EXTREMITIES: Normal range of motion. No clubbing or cyanosis. Peripheral pulses intact. No lower extremity edema ASSESSMENT: Covid 19, diagnosed 12/26/2020 at [facility] Coronary artery disease with previous PCI, most recently in 2016 Acute renal failure Acute GI bleeding Abnormal troponins, may be secondary to DALY and acute blood loss anemia, not suggestive of ACS Ischemic cardiomyopathy Hypertension Hyperlipidemia Dementia Partially obstructing malignant-appearing sigmoid mass PLAN: Resume aspirin if okay with general surgery. Will defer to medicine. Continue metoprolol and lipitor 2-D echo ordered. Await results Further recommendations pending patient course Nurse practitioner note has been reviewed by physician. Signing provider agrees with the documented findings, assessment, and plan of care. Objective - Vital Signs Vital signs: Vital Signs Temp 98.3 F 01/12/21 08:00 Pulse 76 01/12/21 11:59 Resp 18 01/12/21 11:59 BP 128/68 01/12/21 11:59 Pulse Ox 98 01/12/21 11:59 Intake & Output 01/11/21 01/12/21 01/12/21 18:59 06:59 18:59 Intake Total 730 Output Total 500 1100 Balance 230 -1100 Weight 66.5 kg Intake: IV 250 Oral 480 Output: Urine 1100 Stool 500 Other: Voiding Method Urinal Urinal # Bowel Movements 1 - Labs CBC & Chem 7: 01/12/21 10:03 01/11/21 07:58 Labs: Abnormal Lab Results - Last 24 Hours (Table) 01/11/21 01/12/21 Range/Units 06:50 10:03 RBC 2.87 L (4.30-5.90) m/uL Hgb 8.8 L (13.0-17.5) gm/dL Hct 26.3 L (39.0-53.0) % Lymphocytes # 0.7 L (1.0-4.8) k/uL Urine Protein Trace H (Negative) Urine Blood Trace H (Negative) Urine RBC 11 H (0-5) /hpf Urine Bacteria Rare H (None) /hpf Urine Mucus Rare H (None) /hpf
--- NOTE | 2021-01-12 13:53 | PN ---
PROGRESS NOTE The patient is seen for followup for acute kidney injury mostly prerenal currently improving with IV hydration. I do not have any labs from today. The patient does have underlying CKD with baseline creatinine around 2 mg/dL. He was admitted to the hospital with gastrointestinal bleed. Colonoscopy done yesterday showed evidence of colonic mass for which surgery has been consulted. In the meantime, patient is maintained on IV fluids and his renal function continues to improve. I do not have any labs from today. Patient is also COVID positive but does not have any respiratory symptoms. EXAMINATION: Today, blood pressure 141/67, heart rate 70 per minute. He is afebrile. Examination shows he is euvolemic. No evidence of edema bilateral lower extremities. LOT ATTENDANT exam grossly intact. Patient is hard of hearing. LAB: From 01/11/2021 show sodium 139, potassium 3.5, chloride 110, CO2 is 19, BUN 57, creatinine 2.72. ASSESSMENT: 1. Acute kidney injury, prerenal, currently improving with IV hydration. 2. Chronic kidney disease, baseline creatinine around 2 mg/dL. Etiology is likely nephrosclerosis. UA shows trace protein, trace blood. 3. Gastrointestinal bleed status post colonoscopy which showed colonic mass. The patient has been evaluated by General Surgery. 4. Volume depletion, currently improved. 5. COVID positive with no significant respiratory symptoms. PLAN: The patient will need outpatient followup for CKD. Continue IV hydration until discharge and the patient is encouraged to maintain good oral hydration if he is discharged. Follow up in about 1-2 weeks as outpatient. MMODL / IJN: [id number] /
--- NOTE | 2021-01-19 11:21 | ECHOF ---
Referral Reason:LVF MEASUREMENTS -------- HEIGHT: 177.8 cm WEIGHT: 90.7 kg BP: IVSd: 1.1 cm (0.6 - 1.1) LVIDd: 3.2 cm (3.9 - 5.3) LVPWd: 1.2 cm (0.6 - 1.1) IVSs: 1.3 cm LVIDs: 2.2 cm LVPWs: 1.2 cm Ao Diam: 3.0 cm (2.0 - 3.7) AV Cusp: 1.1 cm (1.5 - 2.6) LA Diam: 3.0 cm (2.7 - 3.8) MV EXCURSION: 8.677 mm (> 18.000) MV EF SLOPE: 80 mm/s (70 - 150) EPSS: 1.6 cm MV E Brent: 0.71 m/s MV DecT: 177 ms MV A Brent: 0.92 m/s MV E/A Ratio: 0.77 AV maxP.27 mmHg AV meanP.23 mmHg RAP: 5.00 mmHg RVSP: 20.73 mmHg FINDINGS -------- This was a technically difficult study with suboptimal views. The left ventricular size is normal. There is mild concentric left ventricular hypertrophy. Overa ll left ventricular systolic function is low-normal with, an EF between 50 - 55 %. The right ventricle is normal in size. The left atrial size is normal. The right atrial size is normal. Lumason used Aortic valve is trileaflet and is mildly thickened. There is mild aortic stenosis present. Peak/m ludwin gradient across the Aortic Valve is 17.27mmHg / 12.23mmHg. The mitral valve is normal. There is trace mitral regurgitation. The tricuspid valve appears structurally normal. Trace tricuspid regurgitation present. Right heriberto tricular systolic pressure is normal at < 35 mmHg. The pulmonic valve was not well visualized. The aortic root size is normal. IVC Not well visulized. There is no pericardial effusion. CONCLUSIONS -------- 1. The left ventricular size is normal. 2. There is mild concentric left ventricular hypertrophy. 3. Overall left ventricular systolic function is low-normal with, an EF between 50 - 55 %. 4. Aortic valve is trileaflet and is mildly thickened. 5. There is mild aortic stenosis present. 6. Peak/mean gradient across the Aortic Valve is 17.27mmHg / 12.23mmHg. 7. There is trace mitral regurgitation. 8. Trace tricuspid regurgitation present. 9. There is no pericardial effusion. CORE SHAPER: Jeimy James RDCS
== END 2021-01-12 13:05 | DRG 374 ==
LOC: EC 02:19 → 6NMEDSUR 05:10 → 3SCARD 12:08 → OBSVTOIN 13:39 → 3SCARD 13:39
PROVIDERS: ADMIT Internal Medicine Geriatric Medicine; ATTEND Internal Medicine Geriatric Medicine
PROC: 30233N1 Transfusion of Nonautologous Red Blood Cells into Peripheral Vein, Percutaneous Approach (ICD-10-PCS; 2021-01-10)
PROC: 0DBN8ZX Excision of Sigmoid Colon, Via Natural or Artificial Opening Endoscopic, Diagnostic (ICD-10-PCS; principal; 2021-01-11 07:30)
DX: C18.7 Malignant neoplasm of sigmoid colon (principal); U07.1 COVID-19; N17.9 Acute kidney failure, unspecified; F33.9 Major depressive disorder, recurrent, unspecified; K92.1 Melena; D62 Acute posthemorrhagic anemia; I25.82 Chronic total occlusion of coronary artery; F03.90 Unspecified dementia, unspecified severity, without behavioral disturbance, psychotic disturbance, mood disturbance, and anxiety; N18.30 Chronic kidney disease, stage 3 unspecified; E86.9 Volume depletion, unspecified; I12.9 Hypertensive chronic kidney disease with stage 1 through stage 4 chronic kidney disease, or unspecified chronic kidney disease; K57.30 Diverticulosis of large intestine without perforation or abscess without bleeding; I25.5 Ischemic cardiomyopathy; I25.10 Atherosclerotic heart disease of native coronary artery without angina pectoris; K21.9 Gastro-esophageal reflux disease without esophagitis; E78.5 Hyperlipidemia, unspecified; N40.0 Benign prostatic hyperplasia without lower urinary tract symptoms; I45.10 Unspecified right bundle-branch block; E78.00 Pure hypercholesterolemia, unspecified; K29.70 Gastritis, unspecified, without bleeding; G89.29 Other chronic pain; M54.9 Dorsalgia, unspecified; I25.2 Old myocardial infarction; R77.8 Other specified abnormalities of plasma proteins; H91.93 Unspecified hearing loss, bilateral; Z79.82 Long term (current) use of aspirin; Z79.899 Other long term (current) drug therapy; Z86.16 Personal history of COVID-19; Z90.49 Acquired absence of other specified parts of digestive tract; Z86.010 Personal history of colon polyps; Z95.5 Presence of coronary angioplasty implant and graft; Z90.89 Acquired absence of other organs; Z90.5 Acquired absence of kidney; Z96.651 Presence of right artificial knee joint; Z98.42 Cataract extraction status, left eye; Z98.41 Cataract extraction status, right eye; Z86.69 Personal history of other diseases of the nervous system and sense organs; Z87.891 Personal history of nicotine dependence; Z86.79 Personal history of other diseases of the circulatory system; Z87.39 Personal history of other diseases of the musculoskeletal system and connective tissue; Z87.440 Personal history of urinary (tract) infections; Z98.890 Other specified postprocedural states; Z88.5 Allergy status to narcotic agent; Z82.49 Family history of ischemic heart disease and other diseases of the circulatory system; Z81.8 Family history of other mental and behavioral disorders
CPT/HCPCS: 36415; 44404; 45380; 71250; 74176; 80053; 81001; 82378; 82550; 83605; 83735; 84484; 85025; 85027; 85610; 85652; 85730; 86140; 86850; 86900; 86901; 86920; 87635; 88305; 93005; 93306; 94640; 96360; 96361; 99285